=== PATIENT | female | born 1935 | race Two or more races ===

== ENCOUNTER 2016-10-01 08:12 | Inpatient (IN) | payer MEDICARE, MEDICAID ==
[~2016-10-01] VITALS: Ht 152.4 cm; Wt 52.2 kg
[2016-10-01] VITALS (8 sets, daily range): BP systolic 127–153; BP diastolic 40–108
[~2016-10-01 08:12] MED LIST: CYMBALTA30 MG ORAL; NORCO 5-325 TA1 EACH ORAL
[2016-10-01] MEDS ORDERED: Morphine Sulfate 2mg/ml Inj IVP ONE (08:30)
[2016-10-01 08:47] LABS: BASOPHILS % (AUTO) 0.4 % (0.0-2.0); EOSINOPHILS % (AUTO) 0.5 % (0.0-3.0); LYMPHOCYTES % (AUTO) 18.2 % (20.0-45.0); MEAN CORPUSCULAR HEMOGLOBIN 29.7 PG (27.0-31.0); MEAN CORPUSCULAR HGB CONC 34.5 G/DL (32.0-36.0); MEAN CORPUSCULAR VOLUME 86 FL (80-99); MEAN PLATELET VOLUME 5.8 FL (6.5-10.1); MONOCYTES % (AUTO) 4.5 % (1.0-10.0); NEUTROPHILS % (AUTO) 76.4 % (45.0-75.0); PLATELET COUNT 399 K/UL (150-450); RED BLOOD COUNT 3.96 M/UL (4.20-5.40); RED CELL DISTRIBUTION WIDTH 11.8 % (11.6-14.8); WHITE BLOOD COUNT 12.1 K/UL (4.8-10.8)
[2016-10-01 08:49] LABS: APPEARANCE,URINE CLEAR; KETONES,URINE NEGATIVE (NEGATIVE); LEUKOCYTE ESTERASE ,URINE NEGATIVE (NEGATIVE); NITRITE,URINE NEGATIVE (NEGATIVE); PH,URINE 7 (4.5-8.0); PROTEIN,URINE 3+ (NEGATIVE); UROBILINOGEN,URINE NORMAL MG/DL (0.0-1.0)
[2016-10-01 09:04] LABS: BACTERIA,URINE OCCASIONAL /HPF; SQUAMOUS EPITHELIAL CELL,UR FEW /LPF (NONE/OCC); WBC,URINE 0-2 /HPF (0 - 2)
[2016-10-01 09:46] LABS: ALANINE AMINOTRANSFERASE 18 U/L (3-33); ALBUMIN/GLOBULIN RATIO 1.2 (1.0-2.7); ASPARTATE AMINO TRANSFERASE 33 U/L (5-40); CALCIUM 7.7 mg/dL (8.6-10.2); CARBON DIOXIDE 20 mEQ/L (20-30); CHLORIDE 73 mEQ/L (98-107); CREATININE 0.5 mg/dL (0.5-0.9); HEMOLYSIS 61; LIPASE 22 U/L (< 60); POTASSIUM 4.4 mEQ/L (3.4-4.9); TOTAL PROTEIN 6.8 g/dL (6.6-8.7)
[2016-10-01 09:47] LABS: TROPONIN I < 0.30 ng/mL (<=0.30)
[2016-10-01 09:52] LABS: ANION GAP 16 (5-15)
[2016-10-01 09:54] LABS: SODIUM 109 mEQ/L (135-145)
[2016-10-01] MEDS ORDERED: NaCl 3% 500ml 500 ML IVPB ONE ×2 (10:15)
[2016-10-01] MEDS ORDERED: Norco 5mg/325mg tab ORAL PRN (10:15)
[2016-10-01] MEDS ORDERED: Mylanta II UD 30ml ORAL PRN (10:15)
[2016-10-01] MEDS ORDERED: Zolpidem 5mg tab ORAL PRN (10:15)
[2016-10-01] MEDS ORDERED: LORazepam Inj 2mg/ml 1ml IV PRN (10:15)
[2016-10-01] MEDS ORDERED: Miralax 17gm pkt ORAL PRN (10:15)
--- NOTE | 2016-10-01 11:19 | Emergency Room Report ---
History of Present Illness General Chief Complaint: Pain Source: EMS Present Illness HPI 80-year-old female presents ED complaining of abdominal pain with vomiting x2 weeks. Daughter at bedside states that earlier this month she had right knee surgery at [facility]. Patient was discharged home on pain medications. Daughter states she's been unable to tolerate by mouth medications. Patient also complaining of abdominal pain. Epigastric. 10 out of 10. Radiating to the back. Also noting flank pain. Next nausea and vomiting. Denies chest pain or shortness of breath. Denies fevers or chills. No other aggravating or leading factors. Denies any other associated symptoms Allergies: Coded Allergies: No Known Allergies (Unverified , 10/01/16) Patient History Past Medical History: psych hx Past Surgical History: other - knee surgery Pertinent Family History: none Social History: Denies: alcohol use, drug use, smoking Now: No Immunizations: UTD Reviewed Nursing Documentation: PMH: Agreed, PSxH: Agreed Nursing Documentation-PMH Past Medical History: No History, Except For Hx Hypertension: No - RT KNEE REPLACEMENT Hx Neurological Problems: Yes - DEPRESSION Review of Systems All Other Systems: negative except mentioned in HPI Physical Exam Vital Signs Date Time Temp Pulse Resp B/P Pulse Ox O2 Delivery O2 Flow Rate FiO2 10/01/16 07:53 97.5 76 20 110/72 100 Room Air Sp02 EP Interpretation: reviewed, normal General Appearance: mild distress, thin, other - shaking Head: normocephalic Eyes: bilateral eye PERRL, bilateral eye normal inspection ENT: normal ENT inspection Neck: normal inspection Respiratory: chest non-tender, lungs clear, normal breath sounds, speaking full sentences Cardiovascular #1: regular rate, rhythm, no edema Gastrointestinal: tenderness Rectal: deferred Genitourinary: no CVA tenderness Musculoskeletal: normal inspection Neurologic: other - lethargic, tremulous Psychiatric: normal inspection Skin: normal inspection Lymphatic: normal inspection Procedures Critical Care Time Critical Care Time i. I feel this is a highly complex case requiring extensive working including EKG/Rhythm strip, Xray/CT/US, Blood/urine lab work, repeat exams while in ED, and administration of strong opiates/narcotics for pain control, admission to hospital or close patient follow up. Total time: 30 min bedside evaluation and treatment excludes procedures (EKG). Reason for critical care: hyponatremia Possible complications: hypotension, hypertension, MS, shock, arrhythmias, metabolic acidosis, end organ damage, respiratory failure. Interventions: Labs, IV fluids, EKG, CT abdomen and pelvis. Pain medications. hypertonic saline Course: Patient here with abdominal pain and vomiting. Status post right knee surgery. Given pain medications and IV fluids. Labs show sodium 109. CT abdomen negative. Started on hypertonic saline Consultations: nursing staff, EMS, family Performed by: Dr Mcintyre Tolerated well condition = serious j. because of unstable vital signs this patient had a condition that could potentially threaten life or limb. I feel this is a critical patient who required my full attention while patient was considered critical. Total Critical Care Time excluding procedures was greater than 35 minutes Medical Decision Making Diagnostic Impression: Primary Impression: Hyponatremia Additional Impressions: Vomiting Qualified Codes: R11.2 - Nausea with vomiting, unspecified Abdominal pain Qualified Codes: R10.84 - Generalized abdominal pain ER Course Hospital Course 80-year-old female presents to ED with abdominal pain and vomiting. Status post right knee surgery Differential diagnoses include: gastritis, pancreatitis, kidney stone, pyelonephritis Clinical course Patient placed on stretcher. fitness trainer. After initial history and physical I ordered labs, IV fluids, UA, pain medication and CT scan Labs - no leukocytosis, Hb/Hct stable. Na 109. CT abdomen and pelvis -no acute process EKG - NSR, no acute changes Hypertonic saline started at 23 mL per hour Case discussed with Dr. Bourgeois and he agreed to accept the patient to his service for further care and support I feel this is a highly complex case requiring extensive working including EKG/ Rhythm strip, Xray/CT/US, Blood/urine lab work, repeat exams while in ED, and administration of strong opiates/narcotics for pain control, admission to hospital or close patient follow up. Diagnosis - hyponatremia, vomiting, abdominal pain Patient admitted to [facility] in serious condition Labs Test 10/01/16 08:20 10/01/16 08:35 10/01/16 09:02 White Blood Count 12.1 K/UL (4.8-10.8) Red Blood Count 3.96 M/UL (4.20-5.40) Hemoglobin 11.8 G/DL (12.0-16.0) Hematocrit 34.1 % (37.0-47.0) Mean Corpuscular Volume 86 FL (80-99) Mean Corpuscular Hemoglobin 29.7 PG (27.0-31.0) Mean Corpuscular Hemoglobin Concent 34.5 G/DL (32.0-36.0) Red Cell Distribution Width 11.8 % (11.6-14.8) Platelet Count 399 K/UL (150-450) Mean Platelet Volume 5.8 FL (6.5-10.1) Neutrophils (%) (Auto) 76.4 % (45.0-75.0) Lymphocytes (%) (Auto) 18.2 % (20.0-45.0) Monocytes (%) (Auto) 4.5 % (1.0-10.0) Eosinophils (%) (Auto) 0.5 % (0.0-3.0) Basophils (%) (Auto) 0.4 % (0.0-2.0) Urine Color Pale yellow Urine Appearance Clear Urine pH 7 (4.5-8.0) Urine Specific [place] 1.010 (1.005-1.035) Urine Protein 3+ (NEGATIVE) Urine Glucose (UA) Negative (NEGATIVE) Urine Ketones Negative (NEGATIVE) Urine Occult Blood 3+ (NEGATIVE) Urine Nitrite Negative (NEGATIVE) Urine Bilirubin Negative (NEGATIVE) Urine Urobilinogen Normal MG/DL (0.0-1.0) Urine Leukocyte Esterase Negative (NEGATIVE) Urine RBC 5-10 /HPF (0 - 2) Urine WBC 0-2 /HPF (0 - 2) Urine Squamous Epithelial Cells Few /LPF (NONE/OCC) Urine Bacteria Occasional /HPF (NONE) Sodium Level 109 mEQ/L (135-145) Potassium Level 4.4 mEQ/L (3.4-4.9) Chloride Level 73 mEQ/L (98-107) Carbon Dioxide Level 20 mEQ/L (20-30) Anion Gap 16 (5-15) Blood Urea Nitrogen 11 mg/dL (7-23) Creatinine 0.5 mg/dL (0.5-0.9) Estimat Glomerular Filtration Rate mL/min (>60) Glucose Level 121 mg/dL (74-106) Calcium Level 7.7 mg/dL (8.6-10.2) Total Bilirubin 0.7 mg/dL (0.0-1.2) Aspartate Amino Transf (AST/SGOT) 33 U/L (5-40) Alanine Aminotransferase (ALT/SGPT) 18 U/L (3-33) Alkaline Phosphatase 55 U/L (35-104) Troponin I < 0.30 ng/mL (<=0.30) Total Protein 6.8 g/dL (6.6-8.7) Albumin 3.8 g/dL (3.5-5.2) Globulin 3.0 g/dL Albumin/Globulin Ratio 1.2 (1.0-2.7) Lipase 22 U/L (< 60) EKG Diagnostic Results Rate: normal Rhythm: NSR ST Segments: no acute changes ASA given to the pt in ED: No Rhythm Strip Diag. Results EP Interpretation: yes Rhythm: NSR, no PVC's, no ectopy CT/MRI/US Diagnostic Results CT/MRI/US Diagnostic Results : Imaging Test Ordered: CT A/P Impression no acute process Last Vital Signs Date Time Temp Pulse Resp B/P Pulse Ox O2 Delivery O2 Flow Rate FiO2 10/01/16 10:33 80 14 134/40 97 Room Air 10/01/16 09:10 97.6 Status: improved Disposition: ADMITTED INPATIENT Condition: Serious Referrals: NOT CHOSEN IPA/,REFERRING (PCP) JOEY MCINTYRE M.D. October 01, 2016 11:19
--- NOTE | 2016-10-01 11:34 | Diagnostic Imaging Report ---
APPROVED REPORT CPT Code: 79909 Present Symptoms Lower Extremity Pain: Bilateral BILATERAL: Imaging reveals a patent deep venous system bilaterally. There is no evidence of thrombus within the femoral, popliteal or tibial segments. The greater saphenous veins are also within normal limits. Doppler indicates normal spontaneous flow within these segments.
--- NOTE | 2016-10-01 13:59 | Diagnostic Imaging Report ---
Indications: Abdominal and low back pain, nausea and vomiting for 2 weeks; 3 weeks status post right knee surgery; patient currently taking both hydrocodone and antidepressant medication Technique: Continuous helical CT imaging of the abdomen and pelvis was performed with automatic exposure control following administration of nonionic IV contrast only, on a Siemens sensation [address] scanner. Axial and coronal images were reconstructed at 5 mm slice thickness. No oral contrast was administered per requesting physician's order, presumably due to vomiting. CTDI volume(s): 15 mGy Total DLP: 691 mGy-cm Findings: Comparison: None Lack of oral contrast limits evaluation of gastrointestinal tract, nondilated throughout. Suggestion of small hiatal hernia. Stomach and segments of colon collapsed, further limiting evaluation. Appendix unremarkable. Multiple diverticula in descending and sigmoid colon. No obvious mural thickening, adjacent stranding, associated extraluminal gas or fluid collections. Gallbladder distended, and demonstrates multiple small nodular foci of increased attenuation along its wall. No obvious mural thickening, adjacent stranding or fluid. Liver parenchyma mildly, diffusely decreased attenuation. No obvious focal abnormality. Multiple circumscribed low attenuation foci in both renal cortices up to 17 mm diameter. Scattered arterial mural calcifications. No obvious flow-limiting stenosis or occlusion. Urinary bladder distended. No obvious mural thickening. 1 cm nodular calcification in anterior uterine fundal myometrium. Remainder visualized abdominopelvic anatomy demonstrates no other obvious acute abnormality. Mildly increased interstitial markings and dependent portions of both lung bases. Disc marginal osteophyte formation with annular bulge, vacuum phenomenon, facet hypertrophy lower lumbar spine. Mild spinal stenosis suggested at L4-5. No focal skeletal lesion identified. IMPRESSION: Mild gallbladder distention. Mural appearance is suggestive of hyperplastic cholecystosis/small polyps. No obvious acute inflammation. Correlate clinically. No other evidence of acute abdominopelvic disease, with limitation as described. Subtle but potentially significant abnormalities of the gastrointestinal tract may be missed. Repeat CT scan with full oral and IV contrast preparation recommended for more complete evaluation, as clinically indicated Small hiatal hernia Hepatic steatosis Bilateral renal cortical cysts Arteriosclerosis Colonic diverticulosis Urinary bladder distention Degenerated uterine fibroid Minimal pulmonary bibasal subsegmental atelectasis Degenerative spondylosis
[2016-10-01] MEDS: Morphine Sulfate 2mg/ml Inj IVP PRN ×2 (15:30→20:50)
--- NOTE | 2016-10-01 21:43 | History and Physical ---
History of Present Illness General Date patient seen: October 01, 2016 Reason for Hospitalization: Pain Present Illness HPI 80-year-old female with hx of HTN, recent knee surgery presented to ED complaining of abdominal pain with vomiting x2 weeks. Daughter states she's been unable to tolerate anything by mouth. Patient also complaining of abdominal pain. Epigastric. 10 out of 10. Radiating to the back. Her Na was critically low and she is admitted to [facility] for further treatment. Allergies: Coded Allergies: No Known Allergies (Unverified , 10/01/16) Medication History Scheduled Duloxetine Hcl* (Cymbalta*), Unknown Dose ORAL DAILY, (Reported) Scheduled PRN Hydrocodone Bit/Acetaminophen 5-325* ([place] 5-325*), 1 TAB ORAL Q4H PRN for For Pain, (Reported) Patient History Healthcare decision maker Resuscitation status Full Code Advanced Directive on File Past Medical/Surgical History Past Medical/Surgical History: (1) HTN (hypertension) (2) Depression (3) Hx of knee surgery Review of Systems All Other Systems: negative except mentioned in HPI Physical Exam General Appearance: WD/WN, no apparent distress Lines, tubes and drains: peripheral HEENT: normocephalic, atraumatic Neck: non-tender, normal alignment Respiratory/Chest: chest wall non-tender, lungs clear Cardiovascular/Chest: normal peripheral pulses, normal rate Abdomen: normal bowel sounds, non tender Genitourinary/Rectal: normal genital exam, normal rectal exam 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: 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 normal Last 24 Hour Vital Signs Date Time Temp Pulse Resp B/P Pulse Ox O2 Delivery O2 Flow Rate FiO2 10/01/16 20:00 92 10/01/16 16:00 99.4 86 18 142/65 98 Room Air 86 10/01/16 15:42 85 10/01/16 14:04 98.2 89 18 133/63 99 Room Air 10/01/16 12:42 93 21 151/84 99 Room Air 10/01/16 12:40 97.6 91 18 130/81 98 Room Air 10/01/16 11:39 91 18 130/81 98 Room Air 10/01/16 10:33 80 14 134/40 97 Room Air 10/01/16 09:12 79 19 145/86 100 Room Air 10/01/16 09:10 97.6 10/01/16 08:13 79 17 127/108 100 Room Air 10/01/16 07:53 97.5 76 20 110/72 100 Room Air Laboratory Tests Test 10/01/16 08:20 10/01/16 08:35 10/01/16 09:02 White Blood Count 12.1 K/UL (4.8-10.8) H Red Blood Count 3.96 M/UL (4.20-5.40) L Hemoglobin 11.8 G/DL (12.0-16.0) L Hematocrit 34.1 % (37.0-47.0) L Mean Corpuscular Volume 86 FL (80-99) Mean Corpuscular Hemoglobin 29.7 PG (27.0-31.0) Mean Corpuscular Hemoglobin Concent 34.5 G/DL (32.0-36.0) Red Cell Distribution Width 11.8 % (11.6-14.8) Platelet Count 399 K/UL (150-450) Mean Platelet Volume 5.8 FL (6.5-10.1) L Neutrophils (%) (Auto) 76.4 % (45.0-75.0) H Lymphocytes (%) (Auto) 18.2 % (20.0-45.0) L Monocytes (%) (Auto) 4.5 % (1.0-10.0) Eosinophils (%) (Auto) 0.5 % (0.0-3.0) Basophils (%) (Auto) 0.4 % (0.0-2.0) Urine Color Pale yellow Urine Appearance Clear Urine pH 7 (4.5-8.0) Urine Specific [place] 1.010 (1.005-1.035) Urine Protein 3+ (NEGATIVE) H Urine Glucose (UA) Negative (NEGATIVE) Urine Ketones Negative (NEGATIVE) Urine Occult Blood 3+ (NEGATIVE) H Urine Nitrite Negative (NEGATIVE) Urine Bilirubin Negative (NEGATIVE) Urine Urobilinogen Normal MG/DL (0.0-1.0) Urine Leukocyte Esterase Negative (NEGATIVE) Urine RBC 5-10 /HPF (0 - 2) H Urine WBC 0-2 /HPF (0 - 2) Urine Squamous Epithelial Cells Few /LPF (NONE/OCC) Urine Bacteria Occasional /HPF (NONE) Sodium Level 109 mEQ/L (135-145) *L Potassium Level 4.4 mEQ/L (3.4-4.9) Chloride Level 73 mEQ/L (98-107) L Carbon Dioxide Level 20 mEQ/L (20-30) Anion Gap 16 (5-15) H Blood Urea Nitrogen 11 mg/dL (7-23) Creatinine 0.5 mg/dL (0.5-0.9) Estimat Glomerular Filtration Rate mL/min (>60) Glucose Level 121 mg/dL (74-106) H Calcium Level 7.7 mg/dL (8.6-10.2) L Total Bilirubin 0.7 mg/dL (0.0-1.2) Aspartate Amino Transf (AST/SGOT) 33 U/L (5-40) Alanine Aminotransferase (ALT/SGPT) 18 U/L (3-33) Alkaline Phosphatase 55 U/L (35-104) Troponin I < 0.30 ng/mL (<=0.30) Total Protein 6.8 g/dL (6.6-8.7) Albumin 3.8 g/dL (3.5-5.2) Globulin 3.0 g/dL Albumin/Globulin Ratio 1.2 (1.0-2.7) Lipase 22 U/L (< 60) Height (Feet): 5 Height (Inches): 0.00 Weight (Pounds): 119 Medications Current Medications Medications (Trade) Dose Ordered Sig/Jack Route PRN Reason Start Time Stop Time Status Last Admin Dose Admin Acetaminophen (Tylenol) 650 mg Q4H PRN ORAL fever 10/01/16 10:15 10/31/16 10:14 Acetaminophen/ Hydrocodone Bitart ([place] 5/325) 1 tab Q4H PRN ORAL Moderate Pain (Pain Scale 4-6) 10/01/16 10:15 10/08/16 10:14 Al Hydroxide/Mg Hydroxide (Mylanta II) 30 ml Q6H PRN ORAL dyspepsia 10/01/16 10:15 10/31/16 10:14 Dextrose STAT PRN IV Hypoglycemia 10/01/16 10:15 10/31/16 10:14 Duloxetine HCl (Cymbalta) 10 mg DAILY ORAL 10/02/16 09:00 11/01/16 08:59 Lorazepam (Ativan 2mg/ml 1ml) 0.5 mg Q4H PRN IV For Anxiety 10/01/16 10:15 10/08/16 10:14 Morphine Sulfate (Morphine Sulfate) 1 mg Q4H PRN IVP Severe Pain (Pain Scale 7-10) 10/01/16 10:15 10/08/16 10:14 10/01/16 20:50 Ondansetron HCl (Zofran) 4 mg Q6H PRN IVP Nausea & Vomiting 10/01/16 10:15 10/31/16 10:14 Polyethylene Glycol (Miralax) 17 gm HSPRN PRN ORAL Constipation 10/01/16 10:15 10/31/16 10:14 Sodium Chloride (Hypertonic Saline) 500 ml @ 23 mls/hr ONCE ONCE IVPB 10/01/16 10:15 10/02/16 07:59 10/01/16 11:19 Zolpidem Tartrate (Ambien) 5 mg HSPRN PRN ORAL Insomnia 10/01/16 10:15 10/31/16 10:14 Assessment/Plan Problem List: (1) Hyponatremia ICD Codes: E87.1 - Hypo-osmolality and hyponatremia SNOMED: 05714661 (2) Abdominal pain ICD Codes: R10.9 - Unspecified abdominal pain SNOMED: 25065355 Qualifiers: Qualified Codes: R10.84 - Generalized abdominal pain (3) Vomiting ICD Codes: R11.10 - Vomiting, unspecified SNOMED: 995083904 Qualifiers: Qualified Codes: R11.2 - Nausea with vomiting, unspecified (4) Hx of knee surgery ICD Codes: Z98.890 - Other specified postprocedural states SNOMED: 830210423, 238114639 (5) Depression ICD Codes: F32.9 - Major depressive disorder, single episode, unspecified SNOMED: 58887289 (6) HTN (hypertension) ICD Codes: I10 - Essential (primary) hypertension SNOMED: 42645495 Assessment/Plan 3% sailing check tsh, monitor bp renal evaluation GI evaluation dvt prophylaxis ALINE HITCHCOCK October 01, 2016 21:43
[2016-10-02] VITALS (7 sets, daily range): BP systolic 128–158; BP diastolic 57–96
[2016-10-02 05:14] LABS: BASOPHILS % (AUTO) 0.8 % (0.0-2.0); EOSINOPHILS % (AUTO) 1.5 % (0.0-3.0); LYMPHOCYTES % (AUTO) 24.8 % (20.0-45.0); MEAN CORPUSCULAR HEMOGLOBIN 30.1 PG (27.0-31.0); MEAN CORPUSCULAR HGB CONC 34.4 G/DL (32.0-36.0); MEAN CORPUSCULAR VOLUME 88 FL (80-99); MEAN PLATELET VOLUME 6.1 FL (6.5-10.1); NEUTROPHILS % (AUTO) 62.9 % (45.0-75.0); PLATELET COUNT 361 K/UL (150-450); RED BLOOD COUNT 3.33 M/UL (4.20-5.40); RED CELL DISTRIBUTION WIDTH 12.2 % (11.6-14.8); WHITE BLOOD COUNT 7.6 K/UL (4.8-10.8)
[2016-10-02 05:48] LABS: ALANINE AMINOTRANSFERASE 18 U/L (3-33); ALBUMIN/GLOBULIN RATIO 1.3 (1.0-2.7); ANION GAP 16 (5-15); ASPARTATE AMINO TRANSFERASE 23 U/L (5-40); CALCIUM 8.1 mg/dL (8.6-10.2); CARBON DIOXIDE 21 mEQ/L (20-30); CHLORIDE 87 mEQ/L (98-107); CHOLESTEROL 183 mg/dL (< 200); CHOLESTEROL/HDL RATIO 1.9 (3.3-4.4); CREATININE 0.8 mg/dL (0.5-0.9); HEMOLYSIS 4; LDL CHOLESTEROL (CALC.) 72 mg/dL (60-99); POTASSIUM 3.8 mEQ/L (3.4-4.9); SODIUM 124 mEQ/L (135-145); TOTAL PROTEIN 6.5 g/dL (6.6-8.7)
[2016-10-02] MEDS ORDERED: DULoxetine 30mg cap ORAL SCH (09:00)
--- NOTE | 2016-10-02 11:01 | Pulmonology Progress Note ---
Assessment/Plan Problems: (1) Hyponatremia (2) Abdominal pain (3) Vomiting (4) Hx of knee surgery (5) Depression (6) HTN (hypertension) Assessment/Plan Na better TSH slightly high start synthyroid GI evaluation anemia w/u. dvt propylaxis Subjective ROS Limited/Unobtainable: No Interval Events: comfortable, ate her breakfast Allergies: Coded Allergies: No Known Allergies (Unverified , 10/01/16) Objective Last 24 Hour Vital Signs Date Time Temp Pulse Resp B/P Pulse Ox O2 Delivery O2 Flow Rate FiO2 10/02/16 08:00 98.2 92 20 140/64 99 Room Air 10/02/16 04:00 98.0 86 20 136/59 98 Room Air 10/02/16 04:00 81 10/02/16 01:01 98.0 82 18 128/57 98 Room Air 10/02/16 00:00 81 10/02/16 00:00 98.0 82 18 128/57 98 Room Air 10/01/16 20:00 98.3 92 20 153/76 97 Room Air 10/01/16 20:00 92 10/01/16 16:00 99.4 86 18 142/65 98 Room Air 86 10/01/16 15:42 85 10/01/16 14:04 98.2 89 18 133/63 99 Room Air 10/01/16 12:42 93 21 151/84 99 Room Air 10/01/16 12:40 97.6 91 18 130/81 98 Room Air 10/01/16 11:39 91 18 130/81 98 Room Air Intake and Output 10/01/16 10/02/16 19:00 07:00 Intake Total 888 ml 276 ml Output Total 200 ml 800 ml Balance 688 ml -524 ml Intake Oral 250 ml IV Total 638 ml 276 ml Output Urine Total 200 ml 800 ml General Appearance: WD/WN HEENT: normocephalic Respiratory/Chest: chest wall non-tender, lungs clear Breasts: no masses Cardiovascular: normal peripheral pulses, normal rate Abdomen: normal bowel sounds, soft, non tender Genitourinary: normal external genitalia Extremities: no cyanosis Skin: no rash 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, no motor/sensory deficits Lymphatic: no neck adenopathy Laboratory Tests 10/02/16 03:30: Uric Acid 3.1 10/02/16 03:50: White Blood Count 7.6, Red Blood Count 3.33L, Hemoglobin 10.0L, Hematocrit 29.1L , Mean Corpuscular Volume 88, Mean Corpuscular Hemoglobin 30.1, Mean Corpuscular Hemoglobin Concent 34.4, Red Cell Distribution Width 12.2, Platelet Count 361, Mean Platelet Volume 6.1L, Neutrophils (%) (Auto) 62.9, Lymphocytes ( %) (Auto) 24.8, Monocytes (%) (Auto) 10.0, Eosinophils (%) (Auto) 1.5, Basophils (%) (Auto) 0.8, Sodium Level 124#L, Potassium Level 3.8, Chloride Level 87L, Carbon Dioxide Level 21, Anion Gap 16H, Blood Urea Nitrogen 13, Creatinine 0.8#, Estimat Glomerular Filtration Rate , Glucose Level 104, Calcium Level 8.1L, Total Bilirubin 0.7, Aspartate Amino Transf (AST/SGOT) 23, Alanine Aminotransferase (ALT/SGPT) 18, Alkaline Phosphatase 55, Total Protein 6.5L, Albumin 3.7, Globulin 2.8, Albumin/Globulin Ratio 1.3, Triglycerides Level 63, Cholesterol Level 183, LDL Cholesterol 72, HDL Cholesterol 98H, Cholesterol/HDL Ratio 1.9L, Thyroid Stimulating Hormone (TSH) 5.500H Current Medications Medications (Trade) Dose Ordered Sig/Jack Route PRN Reason Start Time Stop Time Status Last Admin Dose Admin Acetaminophen (Tylenol) 650 mg Q4H PRN ORAL fever 10/01/16 10:15 10/31/16 10:14 Acetaminophen/ Hydrocodone Bitart ([place] 5/325) 1 tab Q4H PRN ORAL Moderate Pain (Pain Scale 4-6) 10/01/16 10:15 10/08/16 10:14 Al Hydroxide/Mg Hydroxide (Mylanta II) 30 ml Q6H PRN ORAL dyspepsia 10/01/16 10:15 10/31/16 10:14 10/02/16 10:35 Dextrose (Dextrose 50%) STAT PRN IV Hypoglycemia 10/01/16 10:15 10/31/16 10:14 Duloxetine HCl (Cymbalta) 20 mg DAILY ORAL 10/02/16 11:30 11/01/16 11:29 Lorazepam (Ativan 2mg/ml 1ml) 0.5 mg Q4H PRN IV For Anxiety 10/01/16 10:15 10/08/16 10:14 Morphine Sulfate (Morphine Sulfate) 1 mg Q4H PRN IVP Severe Pain (Pain Scale 7-10) 10/01/16 10:15 10/08/16 10:14 10/01/16 20:50 Ondansetron HCl (Zofran) 4 mg Q6H PRN IVP Nausea & Vomiting 10/01/16 10:15 10/31/16 10:14 Polyethylene Glycol (Miralax) 17 gm HSPRN PRN ORAL Constipation 10/01/16 10:15 10/31/16 10:14 Zolpidem Tartrate (Ambien) 5 mg HSPRN PRN ORAL Insomnia 10/01/16 10:15 10/31/16 10:14 ALINE HITCHCOCK October 02, 2016 11:01
--- NOTE | 2016-10-02 11:28 | GI Initial Consult Note ---
History of Present Illness General Date patient seen: October 02, 2016 Time patient seen: 11:27 Reason for Hospitalization: Pain Referring physician: ALINE HITCHCOCK Reason for Consultation: ABDOMINAL PAIN / VOMITING Present Illness HPI 80-year-old female presents ED complaining of abdominal pain with vomiting x2 weeks. Daughter at bedside states that earlier this month she had right knee surgery at [facility]. Patient was discharged home on pain medications. Daughter states she's been unable to tolerate by mouth medications. Patient also complaining of abdominal pain. Epigastric. 10 out of 10. Radiating to the back. Also noting flank pain. Next nausea and vomiting. Denies chest pain or shortness of breath. Denies fevers or chills. No other aggravating or leading factors. Denies any other associated symptoms GI CONSULT: HPI noted. GI consulted for vomiting and abdominal pain. Pt seen on floor, awake A&O NAD with no active s/sx of N/V. Patient currently c/o of epigastric pain with radiation to the back. Unknown history of endoscopic procedures. Pt presents today with anemia and hyponatremia. Home Meds Reported Medications Duloxetine Hcl* (CYMBALTA*) 30 Mg Capsule., ORAL DAILY, CAP 10/01/16 Hydrocodone Bit/Acetaminophen 5-325* (NORCO 5-325*) 1 Each Tablet, 1 TAB ORAL Q4H Y for For Pain, TAB 0 Refills 10/01/16 Med list reviewed/reconciled: Yes Allergies: Coded Allergies: No Known Allergies (Unverified , 10/01/16) Patient History History Provided By: Patient, Medical Record PMH Narrative Past Medical History: psych hx Past Surgical History: other - knee surgery Pertinent Family History: none Social History: Denies: alcohol use, drug use, smoking Now: No Immunizations: UTD Reviewed Nursing Documentation: PMH: Agreed, PSxH: Agreed Nursing Documentation-PMH Past Medical History: No History, Except For Hx Hypertension: No - RT KNEE REPLACEMENT Hx Neurological Problems: Yes - DEPRESSION Review of Systems All Other Systems: negative except mentioned in HPI Physical Exam Vital Signs Date Time Temp Pulse Resp B/P Pulse Ox O2 Delivery O2 Flow Rate FiO2 10/01/16 07:53 97.5 76 20 110/72 100 Room Air Sp02 EP Interpretation: reviewed Labs Laboratory Tests Test 10/02/16 03:30 10/02/16 03:50 Uric Acid 3.1 mg/dL (3.0-7.5) White Blood Count 7.6 K/UL (4.8-10.8) Red Blood Count 3.33 M/UL (4.20-5.40) L Hemoglobin 10.0 G/DL (12.0-16.0) L Hematocrit 29.1 % (37.0-47.0) L Mean Corpuscular Volume 88 FL (80-99) Mean Corpuscular Hemoglobin 30.1 PG (27.0-31.0) Mean Corpuscular Hemoglobin Concent 34.4 G/DL (32.0-36.0) Red Cell Distribution Width 12.2 % (11.6-14.8) Platelet Count 361 K/UL (150-450) Mean Platelet Volume 6.1 FL (6.5-10.1) L Neutrophils (%) (Auto) 62.9 % (45.0-75.0) Lymphocytes (%) (Auto) 24.8 % (20.0-45.0) Monocytes (%) (Auto) 10.0 % (1.0-10.0) Eosinophils (%) (Auto) 1.5 % (0.0-3.0) Basophils (%) (Auto) 0.8 % (0.0-2.0) Sodium Level 124 mEQ/L (135-145) #L Potassium Level 3.8 mEQ/L (3.4-4.9) Chloride Level 87 mEQ/L (98-107) L Carbon Dioxide Level 21 mEQ/L (20-30) Anion Gap 16 (5-15) H Blood Urea Nitrogen 13 mg/dL (7-23) Creatinine 0.8 mg/dL (0.5-0.9) # Estimat Glomerular Filtration Rate mL/min (>60) Glucose Level 104 mg/dL (74-106) Calcium Level 8.1 mg/dL (8.6-10.2) L Total Bilirubin 0.7 mg/dL (0.0-1.2) Aspartate Amino Transf (AST/SGOT) 23 U/L (5-40) Alanine Aminotransferase (ALT/SGPT) 18 U/L (3-33) Alkaline Phosphatase 55 U/L (35-104) Total Protein 6.5 g/dL (6.6-8.7) L Albumin 3.7 g/dL (3.5-5.2) Globulin 2.8 g/dL Albumin/Globulin Ratio 1.3 (1.0-2.7) Triglycerides Level 63 mg/dL (< 150) Cholesterol Level 183 mg/dL (< 200) LDL Cholesterol 72 mg/dL (60-99) HDL Cholesterol 98 mg/dL (> 60) H Cholesterol/HDL Ratio 1.9 (3.3-4.4) L Thyroid Stimulating Hormone (TSH) 5.500 uIU/mL (0.300-4.500) General Appearance: well appearing, no apparent distress EENT: normal ENT inspection Neck: full range of motion Respiratory: normal breath sounds, no respiratory distress Cardiovascular: normal rate Gastrointestinal: normal inspection, soft, tenderness - epigastric, ascites Genitourinary: no CVA tenderness Musculoskeletal: back normal Neurologic: alert Psychiatric: normal inspection, judgement/insight normal, memory normal Skin: normal inspection, normal color, no rash Lymphatic: normal inspection, no adenopathy Current Medications Current Medications Medications (Trade) Dose Ordered Sig/Jack Route PRN Reason Start Time Stop Time Status Last Admin Dose Admin Acetaminophen (Tylenol) 650 mg Q4H PRN ORAL fever 10/01/16 10:15 10/31/16 10:14 Acetaminophen/ Hydrocodone Bitart ([place] 5/325) 1 tab Q4H PRN ORAL Moderate Pain (Pain Scale 4-6) 10/01/16 10:15 10/08/16 10:14 Al Hydroxide/Mg Hydroxide (Mylanta II) 30 ml Q6H PRN ORAL dyspepsia 10/01/16 10:15 10/31/16 10:14 10/02/16 10:35 Dextrose (Dextrose 50%) STAT PRN IV Hypoglycemia 10/01/16 10:15 10/31/16 10:14 Duloxetine HCl 20 mg 20 mg DAILY ORAL 10/02/16 11:30 11/01/16 11:29 10/02/16 11:18 Levothyroxine Sodium (Synthroid) 25 mcg DAILY@0630 ORAL 10/03/16 06:30 11/02/16 06:29 Lorazepam (Ativan 2mg/ml 1ml) 0.5 mg Q4H PRN IV For Anxiety 10/01/16 10:15 10/08/16 10:14 Morphine Sulfate (Morphine Sulfate) 1 mg Q4H PRN IVP Severe Pain (Pain Scale 7-10) 10/01/16 10:15 10/08/16 10:14 10/01/16 20:50 Ondansetron HCl (Zofran) 4 mg Q6H PRN IVP Nausea & Vomiting 10/01/16 10:15 10/31/16 10:14 Polyethylene Glycol (Miralax) 17 gm HSPRN PRN ORAL Constipation 10/01/16 10:15 10/31/16 10:14 Potassium Chloride/Dextrose/ Sodium Chloride (KCl/D5ns) 1,010 ml @ 75 mls/hr [id number] IV 10/02/16 12:00 11/01/16 11:59 Zolpidem Tartrate (Ambien) 5 mg HSPRN PRN ORAL Insomnia 10/01/16 10:15 10/31/16 10:14 GI: Plan Problems: (1) GERD (gastroesophageal reflux disease) (2) Abdominal pain (3) Hyponatremia (4) Vomiting (5) Hypothyroid Plan APCT reviewed >> unremarkable symptomatic treatment at this time >> recommend EGD/colonoscopy to evaluate for her anemia zofran prn anemia work up OB stool r/o GI bleed monitor H&H, transfuse prn ppi regular diet, tolerating electrolyte replacement fu labs Discussed with Dr. Ceja. Thank you for referring this patient, we will follow. Kera Hammond N.P. October 02, 2016 11:28
[2016-10-02] MEDS ORDERED: Pantoprazole Inj IVP SCH ×2 (12:00→18:00)
--- NOTE | 2016-10-02 12:19 | Consultation ---
Consult Note Consult Note 80-year-old female presents ED complaining of abdominal pain with vomiting x2 weeks. Daughter at bedside states that earlier this month she had right knee surgery at [facility]. Patient was discharged home on pain medications. Daughter states she's been unable to tolerate by mouth medications. Patient also complaining of abdominal pain. Epigastric. 10 out of 10. Radiating to the back. Also noting flank pain. Next nausea and vomiting. Denies chest pain or shortness of breath. Denies fevers or chills. No other aggravating or leading factors. Denies any other associated symptoms Past Medical History: psych hx Past Surgical History: other - knee surgery Past Medical History: No History, Except For Hx Hypertension: No - RT KNEE REPLACEMENT Hx Neurological Problems: Yes - DEPRESSION . Assessment/Plan status; (1) Hyponatremia- likely depletional due to vomiting (2) Abdominal pain (3) Vomiting (4) Hx of knee surgery (5) Depression (6) HTN (hypertension) Plan; Saline infusion- Protonix IV Monitor lytes- check S os and U os and Susannah.. per orders RAKESH KUMAR October 02, 2016 12:19
--- NOTE | 2016-10-02 12:21 | Consultation ---
Consult Note Consult Note ID Dic# [id number] RORY TURNER M.D. October 02, 2016 12:21
[2016-10-02] MEDS ORDERED: NaCl 3% 500ml 250 ML IV ONE ×2 (14:00)
[2016-10-02] MEDS ORDERED: LORazepam Inj 2mg/ml 1ml IV PRN (15:00)
--- NOTE | 2016-10-02 19:02 | Cardiology Report ---
APPROVED REPORT EKG Measurement Heart [id number] Normal sinus rhythm Normal ECG
[2016-10-02] MEDS: Norco 5mg/325mg tab ORAL PRN (20:14)
[2016-10-02] MEDS: Pantoprazole Inj IVP SCH (20:15)
[2016-10-02] MEDS ORDERED: Miralax 17gm pkt ORAL PRN (21:00)
[2016-10-02] MEDS ORDERED: Zolpidem 5mg tab ORAL PRN (21:00)
--- NOTE | 2016-10-02 21:32 | Consultation ---
DATE OF CONSULTATION: INFECTIOUS DISEASE CONSULTATION CONSULTING PHYSICIAN: Amanuel Gordillo M.D. REQUESTING PHYSICIAN: Akil Bourgeois M.D. REASON FOR CONSULTATION: Evaluation of the patient for leukocytosis, gastroenteritis, and need for antibiotic management. HISTORY OF PRESENT ILLNESS: The patient is an 80-year-old female with multiple medical problems, as listed below, who is admitted to this medical center for abdominal pain and vomiting. At the time of my exam, the patient's symptoms appeared to have improved. The patient does not have any nausea or vomiting further. The patient denies having diarrhea. The patient was found to have leukocytosis of 12,000. Her vital signs during her stay so far has been unremarkable and she has been afebrile. PAST MEDICAL HISTORY: 1. Hypertension. 2. History of right knee replacement. 3. History of back pain. 4. Depression. MEDICATIONS: Currently, off of antibiotics. ALLERGIES: No known drug allergies. SOCIAL HISTORY: The patient lives at home. FAMILY HISTORY: Not contributing. PHYSICAL EXAMINATION: VITAL SIGNS: Temperature 98 degrees, pulse 86, respiratory rate 18, and blood pressure 140/64. HEENT: Mild pale conjunctivae. No icterus. NECK: No lymphadenopathy. CHEST: Coarse breathing sounds. HEART: S1 and S2. ABDOMEN: Soft and nontender. EXTREMITIES: No cyanosis. NEUROLOGIC: Awake. LABORATORY DATA: White blood cells at the time of admission was 12 and now 7.6, hemoglobin 10, and platelets 261,000. UA remarkable. BUN 13 and creatinine 0.8. Liver function tests unremarkable. CT of the abdomen shows mild gallbladder distension and small hiatal hernia. Venous duplex is unremarkable for DVT. ASSESSMENT: The patient is an 80-year-old female, who came to the hospital with nausea, vomiting, and abdominal pain. At the time of my exam, the patient does not have abdominal pain. CT scan showed mildly distended gallbladder and some thickening of the gallbladder, probably hypoplastic, however, there is a concern for possible cholecystitis although the patient's liver function test is unremarkable. PLAN: 1. We will monitor the patient off of antibiotics. 2. Monitor CBC. 3. Monitor BMP. 4. We will order ultrasound of the abdomen. 5. We will follow GI recommendations for possible further workups. 6. Based on the patient's clinical course and labs, we will do further recommendations. Thank you, Dr. Bourgeois, for consultation. I will follow the patient with you during this admission. Amanuel Gordillo M.D. DR: SHUBHAM JOB#: [id number] CC:
[2016-10-03] VITALS (7 sets, daily range): BP systolic 150–166; BP diastolic 61–76
[2016-10-03] MEDS ORDERED: Levothyroxine 25mcg tab ORAL SCH ×2 (06:30)
[2016-10-03 07:15] LABS: BASOPHILS % (AUTO) 0.9 % (0.0-2.0); LYMPHOCYTES % (AUTO) 21.1 % (20.0-45.0); MEAN CORPUSCULAR HEMOGLOBIN 30.6 PG (27.0-31.0); MEAN CORPUSCULAR HGB CONC 34.8 G/DL (32.0-36.0); MEAN CORPUSCULAR VOLUME 88 FL (80-99); MEAN PLATELET VOLUME 6.2 FL (6.5-10.1); MONOCYTES % (AUTO) 6.5 % (1.0-10.0); NEUTROPHILS % (AUTO) 69.4 % (45.0-75.0); PLATELET COUNT 352 K/UL (150-450); RED BLOOD COUNT 3.29 M/UL (4.20-5.40); RED CELL DISTRIBUTION WIDTH 12.5 % (11.6-14.8)
[2016-10-03 07:41] LABS: FERRITIN 387 ng/mL (13-150)
[2016-10-03 08:11] LABS: HEMOLYSIS 4; IRON 85 ug/dL (37-145); TOTAL IRON BINDING CAPACITY 328 ug/dL (250-400)
--- NOTE | 2016-10-03 08:37 | General Progress Note ---
Assessment/Plan Problem List: (1) Hypothyroid ICD Codes: E03.9 - Hypothyroidism, unspecified SNOMED: 87950056 (2) GERD (gastroesophageal reflux disease) ICD Codes: K21.9 - Gastro-esophageal reflux disease without esophagitis SNOMED: 736702396 (3) HTN (hypertension) ICD Codes: I10 - Essential (primary) hypertension SNOMED: 72534281 (4) Abdominal pain ICD Codes: R10.9 - Unspecified abdominal pain SNOMED: 88073405 Qualifiers: Qualified Codes: R10.84 - Generalized abdominal pain Assessment/Plan mild hypothyroidism I concur with Levothyroxine 25 mcg daily follow TSH in 3-4 months Subjective Allergies: Coded Allergies: No Known Allergies (Unverified , 10/01/16) Subjective events noted Objective Last 24 Hour Vital Signs Date Time Temp Pulse Resp B/P Pulse Ox O2 Delivery O2 Flow Rate FiO2 10/03/16 08:22 97.7 82 20 156/68 98 Room Air 10/03/16 04:00 97.5 88 20 150/73 97 Room Air 10/03/16 00:00 97.7 88 20 161/66 97 Room Air 10/02/16 21:13 97.7 10/02/16 20:00 97.7 98 20 144/96 97 Room Air 10/02/16 16:00 98.1 85 20 158/70 98 Room Air 10/02/16 12:00 97.0 85 18 139/65 Room Air Intake and Output 10/02/16 10/03/16 19:00 07:00 Intake Total 912 ml 115 ml Output Total 900 ml Balance 12 ml 115 ml Intake Oral 820 ml IV Total 92 ml 115 ml Output Urine Total 900 ml # Voids 1 2 # Bowel Movements 5 Laboratory Tests 10/02/16 11:30: Free Thyroxine 1.23, Free Triiodothyronine [Pending] 10/02/16 12:40: Urine Osmolality [Pending], Urine Random Sodium 41 10/03/16 06:05: White Blood Count 9.0, Red Blood Count 3.29L, Hemoglobin 10.1L, Hematocrit 29.0L , Mean Corpuscular Volume 88, Mean Corpuscular Hemoglobin 30.6, Mean Corpuscular Hemoglobin Concent 34.8, Red Cell Distribution Width 12.5, Platelet Count 352, Mean Platelet Volume 6.2L, Neutrophils (%) (Auto) 69.4, Lymphocytes ( %) (Auto) 21.1, Monocytes (%) (Auto) 6.5, Eosinophils (%) (Auto) 2.0, Basophils (%) (Auto) 0.9, Reticulocyte Count [Pending], Sodium Level [Pending], Potassium Level [Pending], Chloride Level [Pending], Carbon Dioxide Level [Pending], Blood Urea Nitrogen [Pending], Creatinine [Pending], Estimat Glomerular Filtration Rate [Pending], Glucose Level [Pending], Plasma/Serum Osmolality [ Pending], Uric Acid 2.6L, Calcium Level [Pending], Phosphorus Level [Pending], Magnesium Level [Pending], Iron Level 85, Total Iron Binding Capacity 328, Percent Iron Saturation 26, Unsaturated Iron Binding 243, Ferritin 387H, Total Bilirubin [Pending], Aspartate Amino Transf (AST/SGOT) [Pending], Alanine Aminotransferase (ALT/SGPT) [Pending], Alkaline Phosphatase [Pending], Pro-B- Type Natriuretic Peptide 185, Total Protein [Pending], Albumin [Pending], Globulin [Pending], Carcinoembryonic Antigen 2.4, Vitamin B12 Level > 2000H, Folate [Pending], Thyroid Stimulating Hormone (TSH) 7.100H 10/03/16 06:15: Prothrombin Time 10.0, Prothromb Time International Ratio 1.0, Activated Partial Thromboplast Time 27 Height (Feet): 5 Height (Inches): 0.00 Weight (Pounds): 119 General Appearance: no apparent distress Neck: normal alignment Cardiovascular: regular rhythm Respiratory/Chest: lungs clear Abdomen: normal bowel sounds Edema: no edema noted Arm (L), no edema noted Arm (R), no edema noted Leg (L), no edema noted Leg (R), no edema noted Pedal (L), no edema noted Pedal (R), no edema noted Generalized Objective Current Medications Medications (Trade) Dose Ordered Sig/Jack Route PRN Reason Start Time Stop Time Status Last Admin Dose Admin Acetaminophen (Tylenol) 650 mg Q4H PRN ORAL T>100.5 10/02/16 15:00 11/01/16 14:59 Acetaminophen/ Hydrocodone Bitart ([place] 5/325) 1 tab Q4H PRN ORAL Moderate Pain (Pain Scale 4-6) 10/02/16 15:00 10/09/16 14:59 10/02/16 20:14 Dextrose (Dextrose 50%) STAT PRN IV Hypoglycemia 10/02/16 15:00 11/01/16 14:59 Duloxetine HCl (Cymbalta) 20 mg DAILY ORAL 10/03/16 09:00 11/02/16 08:59 Levothyroxine Sodium (Synthroid) 25 mcg DAILY@0630 ORAL 10/03/16 06:30 11/02/16 06:29 10/03/16 05:59 Lorazepam (Ativan 2mg/ml 1ml) 0.5 mg Q4H PRN IV For Anxiety 10/02/16 15:00 10/09/16 14:59 Morphine Sulfate (Morphine Sulfate) 1 mg Q4H PRN IVP Severe Pain (Pain Scale 7-10) 10/02/16 15:00 10/09/16 14:59 Ondansetron HCl (Zofran) 4 mg Q6H PRN IVP Nausea & Vomiting 10/02/16 15:00 11/01/16 14:59 Pantoprazole (Protonix) 40 mg Q12HR IVP 10/02/16 21:00 11/01/16 20:59 10/02/16 20:15 Polyethylene Glycol (Miralax) 17 gm HSPRN PRN ORAL Constipation 10/02/16 21:00 11/01/16 20:59 Zolpidem Tartrate (Ambien) 5 mg HSPRN PRN ORAL Insomnia 10/02/16 21:00 11/01/16 20:59 LENORE FRIED October 03, 2016 08:37
[2016-10-03 08:41] LABS: ALANINE AMINOTRANSFERASE 20 U/L (3-33); ALBUMIN/GLOBULIN RATIO 1.4 (1.0-2.7); ANION GAP 19 (5-15); ASPARTATE AMINO TRANSFERASE 23 U/L (5-40); CALCIUM 8.1 mg/dL (8.6-10.2); CARBON DIOXIDE 19 mEQ/L (20-30); CHLORIDE 86 mEQ/L (98-107); CREATININE 0.6 mg/dL (0.5-0.9); HEMOLYSIS 1; PHOSPHORUS 2.1 mg/dL (2.5-4.8); POTASSIUM 3.7 mEQ/L (3.4-4.9); SODIUM 124 mEQ/L (135-145); TOTAL PROTEIN 6.4 g/dL (6.6-8.7)
[2016-10-03] MEDS: Pantoprazole Inj IVP SCH ×2 (09:18→20:36)
[2016-10-03] MEDS ORDERED: KCl 10% 40mEq/30ml liquid ORAL ONE (10:00)
--- NOTE | 2016-10-03 10:03 | General Progress Note ---
Assessment/Plan Status: unchanged Status Narrative Na 124 Assessment/Plan (1) Hyponatremia- likely depletional due to vomiting- Also has evidence of SIADH ( Low Uric and high Susannah) (2) Abdominal pain (3) Vomiting (4) Hx of knee surgery (5) Depression (6) HTN (hypertension) (7) HypoThyroidism Plan; Saline infusion- PO Fluid restriction- Up dose Synthroid- Protonix IV Monitor lytes- check S os and U os and Susannah.. per orders Subjective ROS Limited/Unobtainable: No Constitutional: Reports: malaise Allergies: Coded Allergies: No Known Allergies (Unverified , 10/01/16) Objective Last 24 Hour Vital Signs Date Time Temp Pulse Resp B/P Pulse Ox O2 Delivery O2 Flow Rate FiO2 10/03/16 08:22 97.7 82 20 156/68 98 Room Air 10/03/16 04:00 97.5 88 20 150/73 97 Room Air 10/03/16 00:00 97.7 88 20 161/66 97 Room Air 10/02/16 21:13 97.7 10/02/16 20:00 97.7 98 20 144/96 97 Room Air 10/02/16 16:00 98.1 85 20 158/70 98 Room Air 10/02/16 12:00 97.0 85 18 139/65 Room Air Intake and Output 10/02/16 10/03/16 19:00 07:00 Intake Total 912 ml 115 ml Output Total 900 ml Balance 12 ml 115 ml Intake Oral 820 ml IV Total 92 ml 115 ml Output Urine Total 900 ml # Voids 1 2 # Bowel Movements 5 Laboratory Tests 10/02/16 11:30: Free Thyroxine 1.23, Free Triiodothyronine [Pending] 10/02/16 12:40: Urine Osmolality [Pending], Urine Random Sodium 41 10/03/16 06:05: White Blood Count 9.0, Red Blood Count 3.29L, Hemoglobin 10.1L, Hematocrit 29.0L , Mean Corpuscular Volume 88, Mean Corpuscular Hemoglobin 30.6, Mean Corpuscular Hemoglobin Concent 34.8, Red Cell Distribution Width 12.5, Platelet Count 352, Mean Platelet Volume 6.2L, Neutrophils (%) (Auto) 69.4, Lymphocytes ( %) (Auto) 21.1, Monocytes (%) (Auto) 6.5, Eosinophils (%) (Auto) 2.0, Basophils (%) (Auto) 0.9, Reticulocyte Count [Pending], Sodium Level 124L, Potassium Level 3.7, Chloride Level 86L, Carbon Dioxide Level 19L, Anion Gap 19H, Blood Urea Nitrogen 11, Creatinine 0.6, Estimat Glomerular Filtration Rate , Glucose Level 101, Plasma/Serum Osmolality [Pending], Uric Acid 2.6L, Calcium Level 8.1L , Phosphorus Level 2.1L, Magnesium Level 2.0, Iron Level 85, Total Iron Binding Capacity 328, Percent Iron Saturation 26, Unsaturated Iron Binding 243, Ferritin 387H, Total Bilirubin 0.5, Aspartate Amino Transf (AST/SGOT) 23, Alanine Aminotransferase (ALT/SGPT) 20, Alkaline Phosphatase 62, Pro-B-Type Natriuretic Peptide 185, Total Protein 6.4L, Albumin 3.8, Globulin 2.6, Albumin/ Globulin Ratio 1.4, Carcinoembryonic Antigen 2.4, Vitamin B12 Level > 2000H, Folate [Pending], Thyroid Stimulating Hormone (TSH) 7.100H 10/03/16 06:15: Prothrombin Time 10.0, Prothromb Time International Ratio 1.0, Activated Partial Thromboplast Time 27 Height (Feet): 5 Height (Inches): 0.00 Weight (Pounds): 119 General Appearance: no apparent distress Objective other PE not changed RAKESH KUMAR October 03, 2016 10:03
--- NOTE | 2016-10-03 10:48 | Diagnostic Imaging Report ---
Indication: Dyspnea Comparison: None A single view chest radiograph was obtained. Findings: Heart is enlarged. Lungs are clear. Bones are osteopenic. Impression: No acute disease
[2016-10-03] MEDS ORDERED: NaCl 3% 500ml 250 ML IV ONE ×2 (11:00→14:00)
[2016-10-03] MEDS: Norco 5mg/325mg tab ORAL PRN ×2 (15:30→20:37)
--- NOTE | 2016-10-03 18:35 | Infectious Diseases Prog Note ---
Assessment/Plan Assessment/Plan A: The patient is an 80-year-old female Leukocytosis, SP Gastroenteritis, SP No evid of cholecystitis or other ID process Hypertension. History of right knee replacement. History of back pain. Depression. PLAN: will monitor the patient off of antibiotics. Monitor CBC. Monitor BMP. ultrasound of the abdomen. Subjective Constitutional: Denies: anorexia, chills, drenching sweats, fatigue, fever, no symptoms, other Allergies: Coded Allergies: No Known Allergies (Unverified , 10/01/16) Objective Vital Signs Last 24 Hour Vital Signs Date Time Temp Pulse Resp B/P Pulse Ox O2 Delivery O2 Flow Rate FiO2 10/03/16 16:36 98.8 83 17 154/61 99 Room Air 10/03/16 16:29 98.8 10/03/16 14:22 156/76 10/03/16 12:16 97.7 83 19 166/73 99 Room Air 10/03/16 08:22 97.7 82 20 156/68 98 Room Air 10/03/16 04:00 97.5 88 20 150/73 97 Room Air 10/03/16 00:00 97.7 88 20 161/66 97 Room Air 10/02/16 20:00 97.7 98 20 144/96 97 Room Air Height (Feet): 5 Height (Inches): 0.00 Weight (Pounds): 119 HEENT: anicteric Respiratory/Chest: no accessory muscle use Cardiovascular: regularly irregular Abdomen: no mass Microbiology Date/Time Source Procedure Growth Status 10/01/16 15:10 Nasal Nares MRSA Culture - Final NO METHICILLIN RESISTANT STAPH AUREUS... Complete 10/01/16 15:10 Rectum VRE Culture - Final NO VANCOMYCIN RESISTANT ENTEROCOCCUS ... Complete Laboratory Tests Test 10/03/16 06:05 10/03/16 06:15 10/03/16 14:00 White Blood Count 9.0 K/UL (4.8-10.8) Red Blood Count 3.29 M/UL (4.20-5.40) L Hemoglobin 10.1 G/DL (12.0-16.0) L Hematocrit 29.0 % (37.0-47.0) L Mean Corpuscular Volume 88 FL (80-99) Mean Corpuscular Hemoglobin 30.6 PG (27.0-31.0) Mean Corpuscular Hemoglobin Concent 34.8 G/DL (32.0-36.0) Red Cell Distribution Width 12.5 % (11.6-14.8) Platelet Count 352 K/UL (150-450) Mean Platelet Volume 6.2 FL (6.5-10.1) L Neutrophils (%) (Auto) 69.4 % (45.0-75.0) Lymphocytes (%) (Auto) 21.1 % (20.0-45.0) Monocytes (%) (Auto) 6.5 % (1.0-10.0) Eosinophils (%) (Auto) 2.0 % (0.0-3.0) Basophils (%) (Auto) 0.9 % (0.0-2.0) Reticulocyte Count 1.8 % (0.0-2.0) Sodium Level 124 mEQ/L (135-145) L Potassium Level 3.7 mEQ/L (3.4-4.9) Chloride Level 86 mEQ/L (98-107) L Carbon Dioxide Level 19 mEQ/L (20-30) L Anion Gap 19 (5-15) H Blood Urea Nitrogen 11 mg/dL (7-23) Creatinine 0.6 mg/dL (0.5-0.9) Estimat Glomerular Filtration Rate mL/min (>60) Glucose Level 101 mg/dL (74-106) Plasma/Serum Osmolality Pending Uric Acid 2.6 mg/dL (3.0-7.5) L Calcium Level 8.1 mg/dL (8.6-10.2) L Phosphorus Level 2.1 mg/dL (2.5-4.8) L Magnesium Level 2.0 mg/dL (1.7-2.5) Iron Level 85 ug/dL (37-145) Total Iron Binding Capacity 328 ug/dL (250-400) Percent Iron Saturation 26 % (15-50) Unsaturated Iron Binding 243 ug/dL (112-346) Ferritin 387 ng/mL (13-150) H Total Bilirubin 0.5 mg/dL (0.0-1.2) Aspartate Amino Transf (AST/SGOT) 23 U/L (5-40) Alanine Aminotransferase (ALT/SGPT) 20 U/L (3-33) Alkaline Phosphatase 62 U/L (35-104) Pro-B-Type Natriuretic Peptide 185 pg/mL (0-450) Total Protein 6.4 g/dL (6.6-8.7) L Albumin 3.8 g/dL (3.5-5.2) Globulin 2.6 g/dL Albumin/Globulin Ratio 1.4 (1.0-2.7) Carcinoembryonic Antigen 2.4 ng/mL Vitamin B12 Level > 2000 pg/mL (211-946) H Folate Pending Thyroid Stimulating Hormone (TSH) 7.100 uIU/mL (0.300-4.500) Prothrombin Time 10.0 SEC (9.30-11.50) Prothromb Time International Ratio 1.0 (0.9-1.1) Activated Partial Thromboplast Time 27 SEC (23-33) Stool Occult Blood Pending Current Medications Medications (Trade) Dose Ordered Sig/Jack Route PRN Reason Start Time Stop Time Status Last Admin Dose Admin Acetaminophen (Tylenol) 650 mg Q4H PRN ORAL T>100.5 10/02/16 15:00 11/01/16 14:59 Acetaminophen/ Hydrocodone Bitart ([place] 5/325) 1 tab Q4H PRN ORAL Moderate Pain (Pain Scale 4-6) 10/02/16 15:00 10/09/16 14:59 10/03/16 15:30 Dextrose (Dextrose 50%) STAT PRN IV Hypoglycemia 10/02/16 15:00 11/01/16 14:59 Duloxetine HCl (Cymbalta) 20 mg DAILY ORAL 10/03/16 09:00 11/02/16 08:59 10/03/16 09:32 Levothyroxine Sodium (Synthroid) 50 mcg DAILY@0630 ORAL 10/04/16 06:30 11/03/16 06:29 Lorazepam (Ativan 2mg/ml 1ml) 0.5 mg Q4H PRN IV For Anxiety 10/02/16 15:00 10/09/16 14:59 Morphine Sulfate (Morphine Sulfate) 1 mg Q4H PRN IVP Severe Pain (Pain Scale 7-10) 10/02/16 15:00 10/09/16 14:59 Ondansetron HCl (Zofran) 4 mg Q6H PRN IVP Nausea & Vomiting 10/02/16 15:00 11/01/16 14:59 Pantoprazole (Protonix) 40 mg Q12HR IVP 10/02/16 21:00 11/01/16 20:59 10/03/16 09:18 Polyethylene Glycol (Miralax) 17 gm HSPRN PRN ORAL Constipation 10/02/16 21:00 11/01/16 20:59 Sodium Chloride (Hypertonic Saline) 250 ml @ 30 mls/hr ONCE ONCE IV 10/03/16 11:00 10/03/16 19:19 10/03/16 11:50 Zolpidem Tartrate 5 mg 5 mg HSPRN PRN ORAL Insomnia 10/02/16 21:00 11/01/16 20:59 RORY TURNER M.D. October 03, 2016 18:35
--- NOTE | 2016-10-03 21:56 | Pulmonology Progress Note ---
Assessment/Plan Problems: (1) Hyponatremia (2) Abdominal pain (3) Vomiting (4) Hx of knee surgery (5) Depression (6) HTN (hypertension) Assessment/Plan Na better TSH slightly high start synthyroid GI evaluation anemia w/u. dvt propylaxis cxr showed cardiomegaly, will get echo social service consult pt/ot Subjective ROS Limited/Unobtainable: No Constitutional: Reports: no symptoms HEENT: Repors: no symptoms Respiratory: Reports: no symptoms Allergies: Coded Allergies: No Known Allergies (Unverified , 10/01/16) Objective Last 24 Hour Vital Signs Date Time Temp Pulse Resp B/P Pulse Ox O2 Delivery O2 Flow Rate FiO2 10/03/16 20:00 98.9 85 18 150/69 97 Room Air 10/03/16 16:36 98.8 83 17 154/61 99 Room Air 10/03/16 16:29 98.8 10/03/16 14:22 156/76 10/03/16 12:16 97.7 83 19 166/73 99 Room Air 10/03/16 08:22 97.7 82 20 156/68 98 Room Air 10/03/16 04:00 97.5 88 20 150/73 97 Room Air 10/03/16 00:00 97.7 88 20 161/66 97 Room Air Intake and Output 10/02/16 10/03/16 19:00 07:00 Intake Total 912 ml 115 ml Output Total 900 ml Balance 12 ml 115 ml Intake Oral 820 ml IV Total 92 ml 115 ml Output Urine Total 900 ml # Voids 1 2 # Bowel Movements 5 General Appearance: cachetic HEENT: normocephalic, atraumatic Respiratory/Chest: chest wall non-tender, lungs clear Breasts: no masses Cardiovascular: normal peripheral pulses, normal rate Abdomen: normal bowel sounds, soft, non tender Extremities: no cyanosis Skin: no rash 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 Complete 10/01/16 15:10 Rectum VRE Culture - Final NO VANCOMYCIN RESISTANT ENTEROCOCCUS ... Complete Laboratory Tests 10/03/16 06:05: White Blood Count 9.0, Red Blood Count 3.29L, Hemoglobin 10.1L, Hematocrit 29.0L , Mean Corpuscular Volume 88, Mean Corpuscular Hemoglobin 30.6, Mean Corpuscular Hemoglobin Concent 34.8, Red Cell Distribution Width 12.5, Platelet Count 352, Mean Platelet Volume 6.2L, Neutrophils (%) (Auto) 69.4, Lymphocytes ( %) (Auto) 21.1, Monocytes (%) (Auto) 6.5, Eosinophils (%) (Auto) 2.0, Basophils (%) (Auto) 0.9, Reticulocyte Count 1.8, Sodium Level 124L, Potassium Level 3.7, Chloride Level 86L, Carbon Dioxide Level 19L, Anion Gap 19H, Blood Urea Nitrogen 11, Creatinine 0.6, Estimat Glomerular Filtration Rate , Glucose Level 101, Plasma/Serum Osmolality [Pending], Uric Acid 2.6L, Calcium Level 8.1L, Phosphorus Level 2.1L, Magnesium Level 2.0, Iron Level 85, Total Iron Binding Capacity 328, Percent Iron Saturation 26, Unsaturated Iron Binding 243, Ferritin 387H, Total Bilirubin 0.5, Aspartate Amino Transf (AST/SGOT) 23, Alanine Aminotransferase (ALT/SGPT) 20, Alkaline Phosphatase 62, Pro-B-Type Natriuretic Peptide 185, Total Protein 6.4L, Albumin 3.8, Globulin 2.6, Albumin/ Globulin Ratio 1.4, Carcinoembryonic Antigen 2.4, Vitamin B12 Level > 2000H, Folate [Pending], Thyroid Stimulating Hormone (TSH) 7.100H 10/03/16 06:15: Prothrombin Time 10.0, Prothromb Time International Ratio 1.0, Activated Partial Thromboplast Time 27 10/03/16 14:00: Stool Occult Blood [Pending] Current Medications Medications (Trade) Dose Ordered Sig/Jack Route PRN Reason Start Time Stop Time Status Last Admin Dose Admin Acetaminophen (Tylenol) 650 mg Q4H PRN ORAL T>100.5 10/02/16 15:00 11/01/16 14:59 Acetaminophen/ Hydrocodone Bitart ([place] 5/325) 1 tab Q4H PRN ORAL Moderate Pain (Pain Scale 4-6) 10/02/16 15:00 10/09/16 14:59 10/03/16 20:37 Dextrose (Dextrose 50%) STAT PRN IV Hypoglycemia 10/02/16 15:00 11/01/16 14:59 Duloxetine HCl (Cymbalta) 20 mg DAILY ORAL 10/03/16 09:00 11/02/16 08:59 10/03/16 09:32 Levothyroxine Sodium (Synthroid) 50 mcg DAILY@0630 ORAL 10/04/16 06:30 11/03/16 06:29 Lorazepam (Ativan 2mg/ml 1ml) 0.5 mg Q4H PRN IV For Anxiety 10/02/16 15:00 10/09/16 14:59 Morphine Sulfate (Morphine Sulfate) 1 mg Q4H PRN IVP Severe Pain (Pain Scale 7-10) 10/02/16 15:00 10/09/16 14:59 Ondansetron HCl (Zofran) 4 mg Q6H PRN IVP Nausea & Vomiting 10/02/16 15:00 11/01/16 14:59 Pantoprazole (Protonix) 40 mg Q12HR IVP 10/02/16 21:00 11/01/16 20:59 10/03/16 20:36 Polyethylene Glycol (Miralax) 17 gm HSPRN PRN ORAL Constipation 10/02/16 21:00 11/01/16 20:59 Zolpidem Tartrate (Ambien) 5 mg HSPRN PRN ORAL Insomnia 10/02/16 21:00 11/01/16 20:59 ALINE HITCHCOCK October 03, 2016 21:56
--- NOTE | 2016-10-03 22:27 | General Progress Note ---
Assessment/Plan Assessment/Plan Assessment (1) GERD (gastroesophageal reflux disease) (2) Abdominal pain (3) Hyponatremia (4) Vomiting (5) Hypothyroid Recommendations symptomatic treatment at this time >> recommend EGD/colonoscopy to evaluate for her anemia zofran prn anemia work up OB stool r/o GI bleed monitor H&H, transfuse prn ppi regular diet, tolerating electrolyte replacement fu labs Subjective Allergies: Coded Allergies: No Known Allergies (Unverified , 10/01/16) Subjective Calm no complaints Objective Last 24 Hour Vital Signs Date Time Temp Pulse Resp B/P Pulse Ox O2 Delivery O2 Flow Rate FiO2 10/03/16 20:00 98.9 85 18 150/69 97 Room Air 10/03/16 16:36 98.8 83 17 154/61 99 Room Air 10/03/16 16:29 98.8 10/03/16 14:22 156/76 10/03/16 12:16 97.7 83 19 166/73 99 Room Air 10/03/16 08:22 97.7 82 20 156/68 98 Room Air 10/03/16 04:00 97.5 88 20 150/73 97 Room Air 10/03/16 00:00 97.7 88 20 161/66 97 Room Air Intake and Output 10/02/16 10/03/16 19:00 07:00 Intake Total 912 ml 115 ml Output Total 900 ml Balance 12 ml 115 ml Intake Oral 820 ml IV Total 92 ml 115 ml Output Urine Total 900 ml # Voids 1 2 # Bowel Movements 5 Laboratory Tests 10/03/16 06:05: White Blood Count 9.0, Red Blood Count 3.29L, Hemoglobin 10.1L, Hematocrit 29.0L , Mean Corpuscular Volume 88, Mean Corpuscular Hemoglobin 30.6, Mean Corpuscular Hemoglobin Concent 34.8, Red Cell Distribution Width 12.5, Platelet Count 352, Mean Platelet Volume 6.2L, Neutrophils (%) (Auto) 69.4, Lymphocytes ( %) (Auto) 21.1, Monocytes (%) (Auto) 6.5, Eosinophils (%) (Auto) 2.0, Basophils (%) (Auto) 0.9, Reticulocyte Count 1.8, Sodium Level 124L, Potassium Level 3.7, Chloride Level 86L, Carbon Dioxide Level 19L, Anion Gap 19H, Blood Urea Nitrogen 11, Creatinine 0.6, Estimat Glomerular Filtration Rate , Glucose Level 101, Plasma/Serum Osmolality [Pending], Uric Acid 2.6L, Calcium Level 8.1L, Phosphorus Level 2.1L, Magnesium Level 2.0, Iron Level 85, Total Iron Binding Capacity 328, Percent Iron Saturation 26, Unsaturated Iron Binding 243, Ferritin 387H, Total Bilirubin 0.5, Aspartate Amino Transf (AST/SGOT) 23, Alanine Aminotransferase (ALT/SGPT) 20, Alkaline Phosphatase 62, Pro-B-Type Natriuretic Peptide 185, Total Protein 6.4L, Albumin 3.8, Globulin 2.6, Albumin/ Globulin Ratio 1.4, Carcinoembryonic Antigen 2.4, Vitamin B12 Level > 2000H, Folate [Pending], Thyroid Stimulating Hormone (TSH) 7.100H 10/03/16 06:15: Prothrombin Time 10.0, Prothromb Time International Ratio 1.0, Activated Partial Thromboplast Time 10/03/16 14:00: Stool Occult Blood [Pending] Height (Feet): 5 Height (Inches): 0.00 Weight (Pounds): 119 Objective WDWN LW NCAT supple CTA RRR Soft ND NT no edema ALEXANDER PABLO October 03, 2016 22:27
[2016-10-04] VITALS: BP 139/70
[2016-10-04 04:00] VITALS: BP 138/71
[2016-10-04] MEDS: Norco 5mg/325mg tab ORAL PRN ×4 (06:02→21:22)
[2016-10-04 07:40] LABS: BASOPHILS % (AUTO) 1.4 % (0.0-2.0); EOSINOPHILS % (AUTO) 3.6 % (0.0-3.0); LYMPHOCYTES % (AUTO) 28.6 % (20.0-45.0); MEAN CORPUSCULAR HGB CONC 35.2 G/DL (32.0-36.0); MEAN CORPUSCULAR VOLUME 88 FL (80-99); MEAN PLATELET VOLUME 6.7 FL (6.5-10.1); MONOCYTES % (AUTO) 6.7 % (1.0-10.0); NEUTROPHILS % (AUTO) 59.8 % (45.0-75.0); PLATELET COUNT 291 K/UL (150-450); RED CELL DISTRIBUTION WIDTH 12.4 % (11.6-14.8); WHITE BLOOD COUNT 8.1 K/UL (4.8-10.8)
[2016-10-04 07:55] LABS: ALANINE AMINOTRANSFERASE 18 U/L (3-33); ALBUMIN/GLOBULIN RATIO 1.3 (1.0-2.7); ANION GAP 15 (5-15); ASPARTATE AMINO TRANSFERASE 22 U/L (5-40); CALCIUM 8.2 mg/dL (8.6-10.2); CARBON DIOXIDE 22 mEQ/L (20-30); CHLORIDE 85 mEQ/L (98-107); CREATININE 0.6 mg/dL (0.5-0.9); HEMOLYSIS 16; MAGNESIUM 1.9 mg/dL (1.7-2.5); PHOSPHORUS 2.1 mg/dL (2.5-4.8); POTASSIUM 3.8 mEQ/L (3.4-4.9); SODIUM 122 mEQ/L (135-145); TOTAL PROTEIN 6.7 g/dL (6.6-8.7); URIC ACID 2.4 mg/dL (3.0-7.5)
[2016-10-04 08:13] VITALS: BP 156/68
[2016-10-04] MEDS: Pantoprazole Inj IVP SCH (08:16)
--- NOTE | 2016-10-04 09:37 | Diagnostic Imaging Report ---
Indication:Abdominal pain Technique: Grayscale and duplex Doppler imaging of the abdomen performed. Comparison: None Findings: Multiple small gallstones are present. Sonographic Parada's is negative per technologist. There is no wall thickening of the gallbladder. CBD is 7 mm. Questionable stone in the proximal part of the CBD. This is doubtful. Bilateral renal cysts are present The liver, demonstrated part of the pancreas, IVC, spleen appear unremarkable. Aorta shows mural calcification. There is no biliary ductal dilatation identified. Doppler evaluation of the main portal vein shows patency. There is no ascites. No hydronephrosis seen. Impression: Cholelithiasis. Question of the proximal CBD stone. The finding is doubtful that there is no biliary ductal dilatation. That said, an MRCP could be done as warranted clinically. Atherosclerotic vascular disease
--- NOTE | 2016-10-04 10:29 | General Progress Note ---
Assessment/Plan Problem List: (1) Hypothyroid ICD Codes: E03.9 - Hypothyroidism, unspecified SNOMED: 28956329 (2) GERD (gastroesophageal reflux disease) ICD Codes: K21.9 - Gastro-esophageal reflux disease without esophagitis SNOMED: 865414324 (3) HTN (hypertension) ICD Codes: I10 - Essential (primary) hypertension SNOMED: 63513173 (4) Abdominal pain ICD Codes: R10.9 - Unspecified abdominal pain SNOMED: 13234722 Qualifiers: Qualified Codes: R10.84 - Generalized abdominal pain Assessment/Plan mild hypothyroidism I concur with Levothyroxine 25 mcg daily follow TSH in 3-4 months Subjective Allergies: Coded Allergies: No Known Allergies (Unverified , 10/01/16) All Systems: reviewed and negative except above Subjective bedside echocardiogram in progress Objective Last 24 Hour Vital Signs Date Time Temp Pulse Resp B/P Pulse Ox O2 Delivery O2 Flow Rate FiO2 10/04/16 08:13 98.2 82 20 156/68 98 Room Air 10/04/16 04:00 98.1 82 20 138/71 97 Room Air 10/04/16 00:00 97.9 80 18 139/70 95 Room Air 10/03/16 20:00 98.9 85 18 150/69 97 Room Air 10/03/16 16:36 98.8 83 17 154/61 99 Room Air 10/03/16 16:29 98.8 10/03/16 14:22 156/76 10/03/16 12:16 97.7 83 19 166/73 99 Room Air Intake and Output 10/03/16 10/04/16 19:00 07:00 Intake Total 540 ml Balance 540 ml Intake Oral 360 ml IV Total 180 ml # Voids 2 1 # Bowel Movements 1 Laboratory Tests 10/03/16 14:00: Stool Occult Blood [Pending] 10/04/16 06:00: White Blood Count 8.1, Red Blood Count 3.30L, Hemoglobin 10.2L, Hematocrit 29.1L , Mean Corpuscular Volume 88, Mean Corpuscular Hemoglobin 31.0, Mean Corpuscular Hemoglobin Concent 35.2, Red Cell Distribution Width 12.4, Platelet Count 291, Mean Platelet Volume 6.7, Neutrophils (%) (Auto) 59.8, Lymphocytes (% ) (Auto) 28.6, Monocytes (%) (Auto) 6.7, Eosinophils (%) (Auto) 3.6H, Basophils (%) (Auto) 1.4, Sodium Level 122L, Potassium Level 3.8, Chloride Level 85L, Carbon Dioxide Level 22, Anion Gap 15, Blood Urea Nitrogen 14, Creatinine 0.6, Estimat Glomerular Filtration Rate , Glucose Level 101, Plasma/Serum Osmolality [Pending], Uric Acid 2.4L, Calcium Level 8.2L, Phosphorus Level 2.1L, Magnesium Level 1.9, Total Bilirubin 0.5, Aspartate Amino Transf (AST/SGOT) 22, Alanine Aminotransferase (ALT/SGPT) 18, Alkaline Phosphatase 60, Total Protein 6.7, Albumin 3.8, Globulin 2.9, Albumin/Globulin Ratio 1.3 Height (Feet): 5 Height (Inches): 0.00 Weight (Pounds): 119 General Appearance: no apparent distress Neck: normal alignment Cardiovascular: regular rhythm Respiratory/Chest: lungs clear Abdomen: normal bowel sounds Edema: no edema noted Arm (L), no edema noted Arm (R), no edema noted Leg (L), no edema noted Leg (R), no edema noted Pedal (L), no edema noted Pedal (R), no edema noted Generalized Objective Current Medications Medications (Trade) Dose Ordered Sig/Jack Route PRN Reason Start Time Stop Time Status Last Admin Dose Admin Acetaminophen (Tylenol) 650 mg Q4H PRN ORAL T>100.5 10/02/16 15:00 11/01/16 14:59 Acetaminophen/ Hydrocodone Bitart ([place] 5/325) 1 tab Q4H PRN ORAL Moderate Pain (Pain Scale 4-6) 10/02/16 15:00 10/09/16 14:59 10/04/16 06:02 Dextrose (Dextrose 50%) STAT PRN IV Hypoglycemia 10/02/16 15:00 11/01/16 14:59 Duloxetine HCl (Cymbalta) 20 mg DAILY ORAL 10/03/16 09:00 11/02/16 08:59 10/04/16 08:15 Furosemide (Lasix) 10 mg EVERY 6 HOURS IV 10/04/16 12:00 11/03/16 11:59 Levothyroxine Sodium (Synthroid) 50 mcg DAILY@0630 ORAL 10/04/16 06:30 11/03/16 06:29 10/04/16 06:00 Lorazepam (Ativan 2mg/ml 1ml) 0.5 mg Q4H PRN IV For Anxiety 10/02/16 15:00 10/09/16 14:59 Morphine Sulfate (Morphine Sulfate) 1 mg Q4H PRN IVP Severe Pain (Pain Scale 7-10) 10/02/16 15:00 10/09/16 14:59 Ondansetron HCl (Zofran) 4 mg Q6H PRN IVP Nausea & Vomiting 10/02/16 15:00 11/01/16 14:59 Pantoprazole (Protonix) 40 mg EVERY 12 HOURS ORAL 10/04/16 21:00 11/03/16 20:59 Polyethylene Glycol (Miralax) 17 gm HSPRN PRN ORAL Constipation 10/02/16 21:00 11/01/16 20:59 Zolpidem Tartrate (Ambien) 5 mg HSPRN PRN ORAL Insomnia 10/02/16 21:00 11/01/16 20:59 LENORE FRIED October 04, 2016 10:29
[2016-10-04 12:12] VITALS: BP 152/62
--- NOTE | 2016-10-04 13:50 | General Progress Note ---
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 per orders Subjective ROS Limited/Unobtainable: No Constitutional: Reports: malaise Allergies: Coded Allergies: No Known Allergies (Unverified , 10/01/16) Objective Last 24 Hour Vital Signs Date Time Temp Pulse Resp B/P Pulse Ox O2 Delivery O2 Flow Rate FiO2 10/04/16 12:12 98.0 86 20 152/62 99 Room Air 10/04/16 08:13 98.2 82 20 156/68 98 Room Air 10/04/16 04:00 98.1 82 20 138/71 97 Room Air 10/04/16 00:00 97.9 80 18 139/70 95 Room Air 10/03/16 20:00 98.9 85 18 150/69 97 Room Air 10/03/16 16:36 98.8 83 17 154/61 99 Room Air 10/03/16 16:29 98.8 10/03/16 14:22 156/76 Intake and Output 10/03/16 10/04/16 19:00 07:00 Intake Total 540 ml Balance 540 ml Intake Oral 360 ml IV Total 180 ml # Voids 2 1 # Bowel Movements 1 Laboratory Tests 10/03/16 14:00: Stool Occult Blood Negative 10/04/16 06:00: White Blood Count 8.1, Red Blood Count 3.30L, Hemoglobin 10.2L, Hematocrit 29.1L , Mean Corpuscular Volume 88, Mean Corpuscular Hemoglobin 31.0, Mean Corpuscular Hemoglobin Concent 35.2, Red Cell Distribution Width 12.4, Platelet Count 291, Mean Platelet Volume 6.7, Neutrophils (%) (Auto) 59.8, Lymphocytes (% ) (Auto) 28.6, Monocytes (%) (Auto) 6.7, Eosinophils (%) (Auto) 3.6H, Basophils (%) (Auto) 1.4, Sodium Level 122L, Potassium Level 3.8, Chloride Level 85L, Carbon Dioxide Level 22, Anion Gap 15, Blood Urea Nitrogen 14, Creatinine 0.6, Estimat Glomerular Filtration Rate , Glucose Level 101, Plasma/Serum Osmolality [Pending], Uric Acid 2.4L, Calcium Level 8.2L, Phosphorus Level 2.1L, Magnesium Level 1.9, Total Bilirubin 0.5, Aspartate Amino Transf (AST/SGOT) 22, Alanine Aminotransferase (ALT/SGPT) 18, Alkaline Phosphatase 60, Total Protein 6.7, Albumin 3.8, Globulin 2.9, Albumin/Globulin Ratio 1.3 Height (Feet): 5 Height (Inches): 0.00 Weight (Pounds): 119 General Appearance: no apparent distress Edema: no edema noted Arm (L), no edema noted Arm (R), no edema noted Leg (L), no edema noted Leg (R), no edema noted Pedal (L), no edema noted Pedal (R), no edema noted Generalized Objective other PE not changed RAKESH KUMAR October 04, 2016 13:50
--- NOTE | 2016-10-04 14:51 | General Progress Note ---
Assessment/Plan Assessment/Plan Assessment (1) GERD (gastroesophageal reflux disease) (2) Abdominal pain (3) Hyponatremia (4) Vomiting (5) Hypothyroid Recommendations symptomatic treatment at this time >> recommend EGD/colonoscopy to evaluate for her anemia zofran prn anemia work up OB stool r/o GI bleed monitor H&H, transfuse prn ppi regular diet, tolerating electrolyte replacement fu labs Subjective Allergies: Coded Allergies: No Known Allergies (Unverified , 10/01/16) Subjective feels OK notes slight nausea Objective Last 24 Hour Vital Signs Date Time Temp Pulse Resp B/P Pulse Ox O2 Delivery O2 Flow Rate FiO2 10/04/16 12:12 98.0 86 20 152/62 99 Room Air 10/04/16 08:13 98.2 82 20 156/68 98 Room Air 10/04/16 04:00 98.1 82 20 138/71 97 Room Air 10/04/16 00:00 97.9 80 18 139/70 95 Room Air 10/03/16 20:00 98.9 85 18 150/69 97 Room Air 10/03/16 16:36 98.8 83 17 154/61 99 Room Air 10/03/16 16:29 98.8 Intake and Output 10/03/16 10/04/16 19:00 07:00 Intake Total 540 ml Balance 540 ml Intake Oral 360 ml IV Total 180 ml # Voids 2 1 # Bowel Movements 1 Laboratory Tests 10/04/16 06:00: White Blood Count 8.1, Red Blood Count 3.30L, Hemoglobin 10.2L, Hematocrit 29.1L , Mean Corpuscular Volume 88, Mean Corpuscular Hemoglobin 31.0, Mean Corpuscular Hemoglobin Concent 35.2, Red Cell Distribution Width 12.4, Platelet Count 291, Mean Platelet Volume 6.7, Neutrophils (%) (Auto) 59.8, Lymphocytes (% ) (Auto) 28.6, Monocytes (%) (Auto) 6.7, Eosinophils (%) (Auto) 3.6H, Basophils (%) (Auto) 1.4, Sodium Level 122L, Potassium Level 3.8, Chloride Level 85L, Carbon Dioxide Level 22, Anion Gap 15, Blood Urea Nitrogen 14, Creatinine 0.6, Estimat Glomerular Filtration Rate , Glucose Level 101, Plasma/Serum Osmolality [Pending], Uric Acid 2.4L, Calcium Level 8.2L, Phosphorus Level 2.1L, Magnesium Level 1.9, Total Bilirubin 0.5, Aspartate Amino Transf (AST/SGOT) 22, Alanine Aminotransferase (ALT/SGPT) 18, Alkaline Phosphatase 60, Total Protein 6.7, Albumin 3.8, Globulin 2.9, Albumin/Globulin Ratio 1.3 Height (Feet): 5 Height (Inches): 0.00 Weight (Pounds): 119 Objective WDWN LW NCAT supple CTA RRR Soft ND NT no edema ALEXANDER PABLO October 04, 2016 14:51
[2016-10-04 15:45] VITALS: BP 143/74
--- NOTE | 2016-10-04 18:55 | Pulmonology Progress Note ---
Assessment/Plan Problems: (1) Hyponatremia (2) Abdominal pain (3) Vomiting (4) Hx of knee surgery (5) Depression (6) HTN (hypertension) Assessment/Plan Na better synthyroid GI evaluation anemia w/u. dvt prophylaxis endoscopy planned social service consult pt/ot Subjective ROS Limited/Unobtainable: No Constitutional: Reports: no symptoms Allergies: Coded Allergies: No Known Allergies (Unverified , 10/01/16) Objective Last 24 Hour Vital Signs Date Time Temp Pulse Resp B/P Pulse Ox O2 Delivery O2 Flow Rate FiO2 10/04/16 15:45 98.4 92 20 143/74 98 Room Air 10/04/16 12:12 98.0 86 20 152/62 99 Room Air 10/04/16 08:13 98.2 82 20 156/68 98 Room Air 10/04/16 04:00 98.1 82 20 138/71 97 Room Air 10/04/16 00:00 97.9 80 18 139/70 95 Room Air 10/03/16 20:00 98.9 85 18 150/69 97 Room Air Intake and Output 10/03/16 10/04/16 19:00 07:00 Intake Total 540 ml Balance 540 ml Intake Oral 360 ml IV Total 180 ml # Voids 2 1 # Bowel Movements 1 General Appearance: WD/WN HEENT: normocephalic, atraumatic Respiratory/Chest: chest wall non-tender, lungs clear Cardiovascular: normal peripheral pulses, normal rate Abdomen: normal bowel sounds Extremities: no cyanosis Laboratory Tests 10/04/16 06:00: White Blood Count 8.1, Red Blood Count 3.30L, Hemoglobin 10.2L, Hematocrit 29.1L , Mean Corpuscular Volume 88, Mean Corpuscular Hemoglobin 31.0, Mean Corpuscular Hemoglobin Concent 35.2, Red Cell Distribution Width 12.4, Platelet Count 291, Mean Platelet Volume 6.7, Neutrophils (%) (Auto) 59.8, Lymphocytes (% ) (Auto) 28.6, Monocytes (%) (Auto) 6.7, Eosinophils (%) (Auto) 3.6H, Basophils (%) (Auto) 1.4, Sodium Level 122L, Potassium Level 3.8, Chloride Level 85L, Carbon Dioxide Level 22, Anion Gap 15, Blood Urea Nitrogen 14, Creatinine 0.6, Estimat Glomerular Filtration Rate , Glucose Level 101, Plasma/Serum Osmolality [Pending], Uric Acid 2.4L, Calcium Level 8.2L, Phosphorus Level 2.1L, Magnesium Level 1.9, Total Bilirubin 0.5, Aspartate Amino Transf (AST/SGOT) 22, Alanine Aminotransferase (ALT/SGPT) 18, Alkaline Phosphatase 60, Total Protein 6.7, Albumin 3.8, Globulin 2.9, Albumin/Globulin Ratio 1.3 Current Medications Medications (Trade) Dose Ordered Sig/Jack Route PRN Reason Start Time Stop Time Status Last Admin Dose Admin Acetaminophen (Tylenol) 650 mg Q4H PRN ORAL T>100.5 10/02/16 15:00 11/01/16 14:59 Acetaminophen/ Hydrocodone Bitart ([place] 5/325) 1 tab Q4H PRN ORAL Moderate Pain (Pain Scale 4-6) 10/02/16 15:00 10/09/16 14:59 10/04/16 16:24 Dextrose (Dextrose 50%) STAT PRN IV Hypoglycemia 10/02/16 15:00 11/01/16 14:59 Duloxetine HCl (Cymbalta) 20 mg DAILY ORAL 10/03/16 09:00 11/02/16 08:59 10/04/16 08:15 Furosemide (Lasix) 10 mg EVERY 6 HOURS IV 10/04/16 12:00 11/03/16 11:59 10/04/16 17:43 Levothyroxine Sodium (Synthroid) 50 mcg DAILY@0630 ORAL 10/04/16 06:30 11/03/16 06:29 10/04/16 06:00 Lorazepam (Ativan 2mg/ml 1ml) 0.5 mg Q4H PRN IV For Anxiety 10/02/16 15:00 10/09/16 14:59 Morphine Sulfate (Morphine Sulfate) 1 mg Q4H PRN IVP Severe Pain (Pain Scale 7-10) 10/02/16 15:00 10/09/16 14:59 Ondansetron HCl (Zofran) 4 mg Q6H PRN IVP Nausea & Vomiting 10/02/16 15:00 11/01/16 14:59 10/04/16 14:31 Pantoprazole (Protonix) 40 mg EVERY 12 HOURS ORAL 10/04/16 21:00 6/27/17 20:59 Polyethylene Glycol (Miralax) 17 gm HSPRN PRN ORAL Constipation 10/02/16 21:00 11/01/16 20:59 Zolpidem Tartrate (Ambien) 5 mg HSPRN PRN ORAL Insomnia 10/02/16 21:00 11/01/16 20:59 ALINE HITCHCOCK October 04, 2016 18:55
[2016-10-04 20:00] VITALS: BP 126/68
[2016-10-05] VITALS: BP 150/71
[2016-10-05] MEDS: Norco 5mg/325mg tab ORAL PRN ×5 (02:01→20:18)
[2016-10-05 04:00] VITALS: BP 147/61
[2016-10-05 07:06] LABS: ALANINE AMINOTRANSFERASE 17 U/L (3-33); ALBUMIN/GLOBULIN RATIO 1.1 (1.0-2.7); ANION GAP 16 (5-15); ASPARTATE AMINO TRANSFERASE 19 U/L (5-40); CALCIUM 8.3 mg/dL (8.6-10.2); CARBON DIOXIDE 24 mEQ/L (20-30); CHLORIDE 80 mEQ/L (98-107); CREATININE 0.9 mg/dL (0.5-0.9); HEMOLYSIS 0; MAGNESIUM 1.9 mg/dL (1.7-2.5); PHOSPHORUS 2.9 mg/dL (2.5-4.8); POTASSIUM 3.5 mEQ/L (3.4-4.9); SODIUM 120 mEQ/L (135-145); TOTAL PROTEIN 7.1 g/dL (6.6-8.7); URIC ACID 3.5 mg/dL (3.0-7.5)
[2016-10-05 08:00] VITALS: BP 138/68
--- NOTE | 2016-10-05 08:00 | General Progress Note ---
Assessment/Plan Problem List: (1) Hypothyroid ICD Codes: E03.9 - Hypothyroidism, unspecified SNOMED: 37198845 (2) GERD (gastroesophageal reflux disease) ICD Codes: K21.9 - Gastro-esophageal reflux disease without esophagitis SNOMED: 460127077 (3) HTN (hypertension) ICD Codes: I10 - Essential (primary) hypertension SNOMED: 29930079 (4) Abdominal pain ICD Codes: R10.9 - Unspecified abdominal pain SNOMED: 26687066 Qualifiers: Qualified Codes: R10.84 - Generalized abdominal pain Assessment/Plan mild hypothyroidism continue Levothyroxine 50 mcg daily follow TSH in 3-4 months I will sign off Subjective Allergies: Coded Allergies: No Known Allergies (Unverified , 10/01/16) All Systems: reviewed and negative except above Subjective events noted - interval notes reviewed Objective Last 24 Hour Vital Signs Date Time Temp Pulse Resp B/P Pulse Ox O2 Delivery O2 Flow Rate FiO2 10/05/16 04:00 97.5 80 20 147/61 Nasal Cannula 2.0 10/05/16 00:00 98.2 84 18 150/71 96 Nasal Cannula 10/04/16 20:00 98.4 91 18 126/68 96 Room Air 10/04/16 15:45 98.4 92 20 143/74 98 Room Air 10/04/16 12:12 98.0 86 20 152/62 99 Room Air 10/04/16 08:13 98.2 82 20 156/68 98 Room Air Intake and Output 10/04/16 10/05/16 19:00 07:00 Intake Total 360 ml 240 ml Output Total 1200 ml 775 ml Balance -840 ml -535 ml Intake Oral 360 ml 240 ml Output Urine Total 1200 ml 775 ml Laboratory Tests 10/05/16 04:30: Sodium Level 120L, Potassium Level 3.5, Chloride Level 80L, Carbon Dioxide Level 24, Anion Gap 16H, Blood Urea Nitrogen 20, Creatinine 0.9, Estimat Glomerular Filtration Rate , Glucose Level 109H, Uric Acid 3.5, Calcium Level 8.3L, Phosphorus Level 2.9, Magnesium Level 1.9, Total Bilirubin 0.5, Aspartate Amino Transf (AST/SGOT) 19, Alanine Aminotransferase (ALT/SGPT) 17, Alkaline Phosphatase 56, Total Protein 7.1, Albumin 3.8, Globulin 3.3, Albumin/Globulin Ratio 1.1 Height (Feet): 5 Height (Inches): 0.00 Weight (Pounds): 119 General Appearance: no apparent distress Neck: normal alignment Cardiovascular: regular rhythm Respiratory/Chest: lungs clear Abdomen: normal bowel sounds Objective Current Medications Medications (Trade) Dose Ordered Sig/Jack Route PRN Reason Start Time Stop Time Status Last Admin Dose Admin Acetaminophen (Tylenol) 650 mg Q4H PRN ORAL T>100.5 10/02/16 15:00 11/01/16 14:59 Acetaminophen/ Hydrocodone Bitart ([place] 5/325) 1 tab Q4H PRN ORAL Moderate Pain (Pain Scale 4-6) 10/02/16 15:00 10/09/16 14:59 10/05/16 06:01 Dextrose (Dextrose 50%) STAT PRN IV Hypoglycemia 10/02/16 15:00 11/01/16 14:59 Duloxetine HCl (Cymbalta) 20 mg DAILY ORAL 10/03/16 09:00 11/02/16 08:59 10/04/16 08:15 Furosemide (Lasix) 10 mg EVERY 6 HOURS IV 10/04/16 12:00 11/03/16 11:59 10/05/16 06:00 Levothyroxine Sodium (Synthroid) 50 mcg DAILY@0630 ORAL 10/04/16 06:30 11/03/16 06:29 10/05/16 06:01 Lorazepam (Ativan 2mg/ml 1ml) 0.5 mg Q4H PRN IV For Anxiety 10/02/16 15:00 10/09/16 14:59 Morphine Sulfate (Morphine Sulfate) 1 mg Q4H PRN IVP Severe Pain (Pain Scale 7-10) 10/02/16 15:00 10/09/16 14:59 Ondansetron HCl (Zofran) 4 mg Q6H PRN IVP Nausea & Vomiting 10/02/16 15:00 11/01/16 14:59 10/05/16 06:00 Pantoprazole (Protonix) 40 mg EVERY 12 HOURS ORAL 10/04/16 21:00 11/03/16 20:59 10/04/16 21:19 Polyethylene Glycol (Miralax) 17 gm HSPRN PRN ORAL Constipation 10/02/16 21:00 11/01/16 20:59 Zolpidem Tartrate (Ambien) 5 mg HSPRN PRN ORAL Insomnia 10/02/16 21:00 11/01/16 20:59 LENORE FRIED October 05, 2016 08:00
--- NOTE | 2016-10-05 08:09 | General Progress Note ---
Assessment/Plan Problem List: (1) Fatty liver ICD Codes: K76.0 - Fatty (change of) liver, not elsewhere classified SNOMED: 813439554 (2) Cholelithiasis ICD Codes: K80.20 - Calculus of gallbladder without cholecystitis without obstruction SNOMED: 333878440 (3) Diverticulosis ICD Codes: K57.90 - Diverticulosis of intestine, part unspecified, without perforation or abscess without bleeding SNOMED: 877943160 (4) Anemia ICD Codes: D64.9 - Anemia, unspecified SNOMED: 253583178 (5) GERD (gastroesophageal reflux disease) ICD Codes: K21.9 - Gastro-esophageal reflux disease without esophagitis SNOMED: 193873750 (6) HTN (hypertension) ICD Codes: I10 - Essential (primary) hypertension SNOMED: 15926638 (7) Depression ICD Codes: F32.9 - Major depressive disorder, single episode, unspecified SNOMED: 93019363 (8) Abdominal pain ICD Codes: R10.9 - Unspecified abdominal pain SNOMED: 19797798 Qualifiers: Qualified Codes: R10.84 - Generalized abdominal pain (9) Hx of knee surgery ICD Codes: Z98.890 - Other specified postprocedural states SNOMED: 549358636, 415628017 Assessment/Plan add mylanta EGD in AM cont PPI colonoscopy when NA is corrected MRCP r/o CBD stone repeat LFTS Subjective ROS Limited/Unobtainable: Yes Allergies: Coded Allergies: No Known Allergies (Unverified , 10/01/16) Subjective c/o abd pain Objective Last 24 Hour Vital Signs Date Time Temp Pulse Resp B/P Pulse Ox O2 Delivery O2 Flow Rate FiO2 10/05/16 04:00 97.5 80 20 147/61 Nasal Cannula 2.0 10/05/16 00:00 98.2 84 18 150/71 96 Nasal Cannula 10/04/16 20:00 98.4 91 18 126/68 96 Room Air 10/04/16 15:45 98.4 92 20 143/74 98 Room Air 10/04/16 12:12 98.0 86 20 152/62 99 Room Air 10/04/16 08:13 98.2 82 20 156/68 98 Room Air Intake and Output 10/04/16 10/05/16 19:00 07:00 Intake Total 360 ml 240 ml Output Total 1200 ml 775 ml Balance -840 ml -535 ml Intake Oral 360 ml 240 ml Output Urine Total 1200 ml 775 ml Laboratory Tests 10/05/16 04:30: Sodium Level 120L, Potassium Level 3.5, Chloride Level 80L, Carbon Dioxide Level 24, Anion Gap 16H, Blood Urea Nitrogen 20, Creatinine 0.9, Estimat Glomerular Filtration Rate , Glucose Level 109H, Uric Acid 3.5, Calcium Level 8.3L, Phosphorus Level 2.9, Magnesium Level 1.9, Total Bilirubin 0.5, Aspartate Amino Transf (AST/SGOT) 19, Alanine Aminotransferase (ALT/SGPT) 17, Alkaline Phosphatase 56, Total Protein 7.1, Albumin 3.8, Globulin 3.3, Albumin/Globulin Ratio 1.1 Height (Feet): 5 Height (Inches): 0.00 Weight (Pounds): 119 General Appearance: alert EENT: normal ENT inspection Neck: supple Cardiovascular: normal rate Respiratory/Chest: lungs clear Abdomen: soft, tender Extremities: non-tender JOAN VAZQUEZ October 05, 2016 08:09
[2016-10-05] MEDS ORDERED: NaCl 3% 500ml 500 ML IV ONE (09:00)
--- NOTE | 2016-10-05 11:58 | General Progress Note ---
Assessment/Plan Status: unchanged Status Narrative Na 120 lower ! 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 per orders Subjective ROS Limited/Unobtainable: No Constitutional: Reports: malaise, weakness Allergies: Coded Allergies: No Known Allergies (Unverified , 10/01/16) Objective Last 24 Hour Vital Signs Date Time Temp Pulse Resp B/P Pulse Ox O2 Delivery O2 Flow Rate FiO2 10/05/16 08:00 97.9 82 18 138/68 94 Room Air 10/05/16 04:00 97.5 80 20 147/61 Nasal Cannula 2.0 10/05/16 00:00 98.2 84 18 150/71 96 Nasal Cannula 10/04/16 20:00 98.4 91 18 126/68 96 Room Air 10/04/16 15:45 98.4 92 20 143/74 98 Room Air 10/04/16 12:12 98.0 86 20 152/62 99 Room Air Intake and Output 10/04/16 10/05/16 19:00 07:00 Intake Total 360 ml 240 ml Output Total 1200 ml 775 ml Balance -840 ml -535 ml Intake Oral 360 ml 240 ml Output Urine Total 1200 ml 775 ml Laboratory Tests 10/05/16 04:30: Sodium Level 120L, Potassium Level 3.5, Chloride Level 80L, Carbon Dioxide Level 24, Anion Gap 16H, Blood Urea Nitrogen 20, Creatinine 0.9, Estimat Glomerular Filtration Rate , Glucose Level 109H, Uric Acid 3.5, Calcium Level 8.3L, Phosphorus Level 2.9, Magnesium Level 1.9, Total Bilirubin 0.5, Aspartate Amino Transf (AST/SGOT) 19, Alanine Aminotransferase (ALT/SGPT) 17, Alkaline Phosphatase 56, Total Protein 7.1, Albumin 3.8, Globulin 3.3, Albumin/Globulin Ratio 1.1 Height (Feet): 5 Height (Inches): 0.00 Weight (Pounds): 119 General Appearance: no apparent distress Respiratory/Chest: lungs clear Abdomen: soft Edema: no edema noted Arm (L), no edema noted Arm (R), no edema noted Leg (L), no edema noted Leg (R), no edema noted Pedal (L), no edema noted Pedal (R), no edema noted Generalized Objective other PE not changed RAKESH UKMAR October 05, 2016 11:58
[2016-10-05 12:00] VITALS: BP 129/68
--- NOTE | 2016-10-05 12:52 | Infectious Diseases Prog Note ---
Assessment/Plan Assessment/Plan A: The patient is an 80-year-old female Leukocytosis, SP Gastroenteritis, SP US: Cholelithiasis , Question of the proximal CBD stone. The finding is doubtful that there is no biliary dilatation , also LFT is NL No evid of cholecystitis or other ID process Hypertension. History of right knee replacement. History of back pain. Depression. PLAN: will monitor the patient off of antibiotics. Monitor CBC. Monitor BMP. Subjective Constitutional: Denies: anorexia, chills, drenching sweats, fatigue, fever, no symptoms, other Allergies: Coded Allergies: No Known Allergies (Unverified , 10/01/16) Objective Vital Signs Last 24 Hour Vital Signs Date Time Temp Pulse Resp B/P Pulse Ox O2 Delivery O2 Flow Rate FiO2 10/05/16 12:00 98.2 80 18 129/68 97 Nasal Cannula 2.0 10/05/16 08:00 97.9 82 18 138/68 94 Room Air 10/05/16 04:00 97.5 80 20 147/61 Nasal Cannula 2.0 10/05/16 00:00 98.2 84 18 150/71 96 Nasal Cannula 10/04/16 20:00 98.4 91 18 126/68 96 Room Air 10/04/16 15:45 98.4 92 20 143/74 98 Room Air Height (Feet): 5 Height (Inches): 0.00 Weight (Pounds): 119 Respiratory/Chest: normal breath sounds Cardiovascular: regularly irregular Abdomen: normal bowel sounds Laboratory Tests Test 10/05/16 04:30 Sodium Level 120 mEQ/L (135-145) L Potassium Level 3.5 mEQ/L (3.4-4.9) Chloride Level 80 mEQ/L (98-107) L Carbon Dioxide Level 24 mEQ/L (20-30) Anion Gap 16 (5-15) H Blood Urea Nitrogen 20 mg/dL (7-23) Creatinine 0.9 mg/dL (0.5-0.9) Estimat Glomerular Filtration Rate mL/min (>60) Glucose Level 109 mg/dL (74-106) H Uric Acid 3.5 mg/dL (3.0-7.5) Calcium Level 8.3 mg/dL (8.6-10.2) L Phosphorus Level 2.9 mg/dL (2.5-4.8) Magnesium Level 1.9 mg/dL (1.7-2.5) Total Bilirubin 0.5 mg/dL (0.0-1.2) Aspartate Amino Transf (AST/SGOT) 19 U/L (5-40) Alanine Aminotransferase (ALT/SGPT) 17 U/L (3-33) Alkaline Phosphatase 56 U/L (35-104) Total Protein 7.1 g/dL (6.6-8.7) Albumin 3.8 g/dL (3.5-5.2) Globulin 3.3 g/dL Albumin/Globulin Ratio 1.1 (1.0-2.7) Current Medications Medications (Trade) Dose Ordered Sig/Jack Route PRN Reason Start Time Stop Time Status Last Admin Dose Admin Acetaminophen (Tylenol) 650 mg Q4H PRN ORAL T>100.5 10/02/16 15:00 11/01/16 14:59 Acetaminophen/ Hydrocodone Bitart ([place] 5/325) 1 tab Q4H PRN ORAL Moderate Pain (Pain Scale 4-6) 10/02/16 15:00 10/09/16 14:59 10/05/16 09:55 Al Hydroxide/Mg Hydroxide (Mylanta) 30 ml Q6H PRN ORAL GERD 10/05/16 08:15 11/04/16 08:14 10/05/16 08:42 Demeclocycline HCl (Declomycin) 300 mg TID ORAL 10/05/16 13:30 10/12/16 13:29 Dextrose (Dextrose 50%) STAT PRN IV Hypoglycemia 10/02/16 15:00 11/01/16 14:59 Duloxetine HCl (Cymbalta) 20 mg DAILY ORAL 10/03/16 09:00 11/02/16 08:59 10/05/16 08:42 Furosemide (Lasix) 10 mg EVERY 6 HOURS IV 10/04/16 12:00 11/03/16 11:59 10/05/16 06:00 Levothyroxine Sodium (Synthroid) 50 mcg DAILY@0630 ORAL 10/04/16 06:30 11/03/16 06:29 10/05/16 06:01 Lorazepam (Ativan 2mg/ml 1ml) 0.5 mg Q4H PRN IV For Anxiety 10/02/16 15:00 10/09/16 14:59 Morphine Sulfate (Morphine Sulfate) 1 mg Q4H PRN IVP Severe Pain (Pain Scale 7-10) 10/02/16 15:00 10/09/16 14:59 Ondansetron HCl (Zofran) 4 mg Q6H PRN IVP Nausea & Vomiting 10/02/16 15:00 11/01/16 14:59 10/05/16 06:00 Pantoprazole 40 mg 40 mg EVERY 12 HOURS ORAL 10/04/16 21:00 11/03/16 20:59 10/05/16 08:42 Polyethylene Glycol (Miralax) 17 gm HSPRN PRN ORAL Constipation 10/02/16 21:00 11/01/16 20:59 Potassium Chloride (K-Dur) 40 meq TWICE A DAY ORAL 10/05/16 09:00 11/04/16 08:59 10/05/16 08:42 Sodium Chloride (Hypertonic Saline) 500 ml @ 30 mls/hr ONCE ONCE IV 10/05/16 09:00 10/06/16 01:39 10/05/16 09:55 Zolpidem Tartrate (Ambien) 5 mg HSPRN PRN ORAL Insomnia 10/02/16 21:00 11/01/16 20:59 RORY TURNER M.D. October 05, 2016 12:52
[2016-10-05] MEDS: Demeclocycline 150mg tab ORAL SCH ×2 (14:19→17:04)
[2016-10-05 16:00] VITALS: BP 119/69
[2016-10-05 20:04] VITALS: BP 126/52
--- NOTE | 2016-10-05 21:15 | Consultation ---
DATE OF CONSULTATION: 10/03/2016 HISTORY OF PRESENT ILLNESS: The patient is an 80-year-old female, who has been admitted through the emergency room with a chief complaint of abdominal pain and vomiting for two weeks. The patient has a history of multiple medical problems including depression, cholecystitis, fatty liver, hypothyroidism, gastroesophageal reflux disease, hyponatremia, and hypertension. Psychiatry was consulted as the patient presented with depressive symptoms. During the evaluation, the patient is presenting with decreased energy, anxiety, worsening of pain, depression, and mainly due to pain. She has been taking Cymbalta as well as anxiolytics. PAST PSYCHIATRIC HISTORY: She has a history of depression. No psychiatric hospitalizations. No suicide attempt in the past. No history of violent behavior. PAST MEDICAL HISTORY: Hypertension, right knee replacement, and back pain. ALLERGIES: No known drug allergies. SUBSTANCE ABUSE HISTORY: No history of illicit drug use or alcohol. SOCIAL HISTORY: The patient lives at home. Has daughter, who is involved in her care. MENTAL STATUS EXAMINATION: The patient is alert and oriented x3. Cooperative and pleasant. Mood is depressed. Affect is constricted. Congruent mood. Thought process is concrete. Thought content, there is no suicidal or homicidal ideation. Cognition is intact. Insight and judgment is fair. PLAN: 1. The patient will be continued on lorazepam 0.5 mg every 4 hours p.r.n. and Ambien. 2. Cymbalta 30 mg in the morning. 3. We will continue to follow and monitor the patient's behavior. Frieda Coffman M.D. DR: JAMILA JOB#: [id number] CC:
--- NOTE | 2016-10-05 22:50 | Pulmonology Progress Note ---
Assessment/Plan Problems: (1) Hyponatremia (2) Abdominal pain (3) Vomiting (4) Hx of knee surgery (5) Depression (6) HTN (hypertension) Assessment/Plan Na better TSH slightly high on Synthyroid GI evaluation, endoscopy in am anemia w/u. dvt propylaxis Subjective ROS Limited/Unobtainable: No Allergies: Coded Allergies: No Known Allergies (Unverified , 10/01/16) Objective Last 24 Hour Vital Signs Date Time Temp Pulse Resp B/P Pulse Ox O2 Delivery O2 Flow Rate FiO2 10/05/16 20:04 97.2 80 18 126/52 Room Air 10/05/16 16:00 98.2 87 18 119/69 94 Room Air 10/05/16 12:00 98.2 80 18 129/68 97 Nasal Cannula 2.0 10/05/16 08:00 97.9 82 18 138/68 94 Room Air 10/05/16 04:00 97.5 80 20 147/61 Nasal Cannula 2.0 10/05/16 00:00 98.2 84 18 150/71 96 Nasal Cannula Intake and Output 10/04/16 10/05/16 19:00 07:00 Intake Total 360 ml 240 ml Output Total 1200 ml 775 ml Balance -840 ml -535 ml Intake Oral 360 ml 240 ml Output Urine Total 1200 ml 775 ml HEENT: normocephalic, atraumatic Respiratory/Chest: chest wall non-tender, lungs clear Cardiovascular: normal peripheral pulses, regular rhythm Abdomen: normal bowel sounds Extremities: no cyanosis Laboratory Tests 10/05/16 04:30: Sodium Level 120L, Potassium Level 3.5, Chloride Level 80L, Carbon Dioxide Level 24, Anion Gap 16H, Blood Urea Nitrogen 20, Creatinine 0.9, Estimat Glomerular Filtration Rate , Glucose Level 109H, Uric Acid 3.5, Calcium Level 8.3L, Phosphorus Level 2.9, Magnesium Level 1.9, Total Bilirubin 0.5, Aspartate Amino Transf (AST/SGOT) 19, Alanine Aminotransferase (ALT/SGPT) 17, Alkaline Phosphatase 56, Total Protein 7.1, Albumin 3.8, Globulin 3.3, Albumin/Globulin Ratio 1.1 Current Medications Medications (Trade) Dose Ordered Sig/Jack Route PRN Reason Start Time Stop Time Status Last Admin Dose Admin Acetaminophen (Tylenol) 650 mg Q4H PRN ORAL T>100.5 10/02/16 15:00 11/01/16 14:59 Acetaminophen/ Hydrocodone Bitart ([place] 5/325) 1 tab Q4H PRN ORAL Moderate Pain (Pain Scale 4-6) 10/02/16 15:00 10/09/16 14:59 10/05/16 20:18 Al Hydroxide/Mg Hydroxide (Mylanta) 30 ml Q6H PRN ORAL GERD 10/05/16 08:15 11/04/16 08:14 10/05/16 21:05 Demeclocycline HCl (Declomycin) 300 mg TID ORAL 10/05/16 13:30 10/12/16 13:29 10/05/16 17:04 Dextrose (Dextrose 50%) STAT PRN IV Hypoglycemia 10/02/16 15:00 11/01/16 14:59 Duloxetine HCl (Cymbalta) 30 mg DAILY ORAL 10/06/16 09:00 11/05/16 08:59 Furosemide (Lasix) 10 mg EVERY 6 HOURS IV 10/04/16 12:00 11/03/16 11:59 10/05/16 17:04 Levothyroxine Sodium (Synthroid) 50 mcg DAILY@0630 ORAL 10/04/16 06:30 11/03/16 06:29 10/05/16 06:01 Lorazepam (Ativan 2mg/ml 1ml) 0.5 mg Q4H PRN IV For Anxiety 10/02/16 15:00 10/09/16 14:59 Morphine Sulfate (Morphine Sulfate) 1 mg Q4H PRN IVP Severe Pain (Pain Scale 7-10) 10/02/16 15:00 10/09/16 14:59 Ondansetron HCl (Zofran) 4 mg Q6H PRN IVP Nausea & Vomiting 10/02/16 15:00 11/01/16 14:59 10/05/16 06:00 Pantoprazole 40 mg 40 mg EVERY 12 HOURS ORAL 10/04/16 21:00 11/03/16 20:59 10/05/16 20:17 Polyethylene Glycol (Miralax) 17 gm HSPRN PRN ORAL Constipation 10/02/16 21:00 11/01/16 20:59 Potassium Chloride (K-Dur) 40 meq TWICE A DAY ORAL 5/29/17 09:00 11/04/16 08:59 10/05/16 17:04 Sodium Chloride (Hypertonic Saline) 500 ml @ 30 mls/hr ONCE ONCE IV 10/05/16 09:00 10/06/16 01:39 10/05/16 09:55 Zolpidem Tartrate (Ambien) 5 mg HSPRN PRN ORAL Insomnia 10/02/16 21:00 11/01/16 20:59 ALINE HITCHCOCK October 05, 2016 22:50
[2016-10-06] VITALS (11 sets, daily range): BP systolic 116–151; BP diastolic 43–76
[2016-10-06] MEDS: Morphine Sulfate 2mg/ml Inj IVP PRN ×3 (00:18→10:24)
[2016-10-06 06:55] LABS: BASOPHILS % (AUTO) 0.5 % (0.0-2.0); EOSINOPHILS % (AUTO) 1.7 % (0.0-3.0); LYMPHOCYTES % (AUTO) 21.2 % (20.0-45.0); MEAN CORPUSCULAR HEMOGLOBIN 30.5 PG (27.0-31.0); MEAN CORPUSCULAR HGB CONC 34.2 G/DL (32.0-36.0); MEAN CORPUSCULAR VOLUME 89 FL (80-99); MEAN PLATELET VOLUME 5.8 FL (6.5-10.1); MONOCYTES % (AUTO) 6.1 % (1.0-10.0); NEUTROPHILS % (AUTO) 70.5 % (45.0-75.0); PLATELET COUNT 332 K/UL (150-450); RED BLOOD COUNT 3.39 M/UL (4.20-5.40); RED CELL DISTRIBUTION WIDTH 12.5 % (11.6-14.8); WHITE BLOOD COUNT 12.2 K/UL (4.8-10.8)
[2016-10-06 07:02] LABS: ALANINE AMINOTRANSFERASE 15 U/L (3-33); ALBUMIN/GLOBULIN RATIO 1.2 (1.0-2.7); ANION GAP 13 (5-15); ASPARTATE AMINO TRANSFERASE 17 U/L (5-40); CALCIUM 8.2 mg/dL (8.6-10.2); CARBON DIOXIDE 24 mEQ/L (20-30); CHLORIDE 91 mEQ/L (98-107); CREATININE 0.9 mg/dL (0.5-0.9); HEMOLYSIS 2; POTASSIUM 4.3 mEQ/L (3.4-4.9); SODIUM 128 mEQ/L (135-145); TOTAL PROTEIN 6.9 g/dL (6.6-8.7)
[2016-10-06 07:40] LABS: MAGNESIUM 2.1 mg/dL (1.7-2.5); PHOSPHORUS 2.2 mg/dL (2.5-4.8); URIC ACID 3.6 mg/dL (3.0-7.5)
[2016-10-06] MEDS ORDERED: DULoxetine 30mg cap ORAL SCH (09:00)
[2016-10-06] MEDS: Demeclocycline 150mg tab ORAL SCH ×2 (09:00→12:57)
[2016-10-06 10:20] LABS: OSMOLALITY SERUM LC 251 mOsmol/kg (280-301)
--- NOTE | 2016-10-06 11:11 | Infectious Diseases Prog Note ---
Assessment/Plan Assessment/Plan A: The patient is an 80-year-old female Leukocytosis, SP Gastroenteritis, SP US: Cholelithiasis , Question of the proximal CBD stone. The finding is doubtful that there is no biliary dilatation , also LFT is NL No evid of cholecystitis or other ID process Hypertension. History of right knee replacement. History of back pain. Depression. PLAN: will monitor the patient off of antibiotics. Monitor CBC. Monitor BMP. Subjective Constitutional: Denies: anorexia, chills, drenching sweats, fatigue, fever, no symptoms, other Allergies: Coded Allergies: No Known Allergies (Unverified , 10/01/16) Objective Vital Signs Last 24 Hour Vital Signs Date Time Temp Pulse Resp B/P Pulse Ox O2 Delivery O2 Flow Rate FiO2 10/06/16 10:54 97.0 10/06/16 07:31 97.0 90 14 127/59 95 Room Air 10/06/16 04:10 98.1 89 17 144/62 97 Room Air 10/06/16 00:10 98.2 87 18 151/76 95 Room Air 10/05/16 20:04 97.2 80 18 126/52 Room Air 10/05/16 16:00 98.2 87 18 119/69 94 Room Air 10/05/16 12:00 98.2 80 18 129/68 97 Nasal Cannula 2.0 Height (Feet): 5 Height (Inches): 0.00 Weight (Pounds): 115 HEENT: anicteric Respiratory/Chest: no respiratory distress Cardiovascular: regularly irregular Abdomen: non distended Laboratory Tests Test 10/06/16 05:25 White Blood Count 12.2 K/UL (4.8-10.8) H Red Blood Count 3.39 M/UL (4.20-5.40) L Hemoglobin 10.3 G/DL (12.0-16.0) L Hematocrit 30.3 % (37.0-47.0) L Mean Corpuscular Volume 89 FL (80-99) Mean Corpuscular Hemoglobin 30.5 PG (27.0-31.0) Mean Corpuscular Hemoglobin Concent 34.2 G/DL (32.0-36.0) Red Cell Distribution Width 12.5 % (11.6-14.8) Platelet Count 332 K/UL (150-450) Mean Platelet Volume 5.8 FL (6.5-10.1) L Neutrophils (%) (Auto) 70.5 % (45.0-75.0) Lymphocytes (%) (Auto) 21.2 % (20.0-45.0) Monocytes (%) (Auto) 6.1 % (1.0-10.0) Eosinophils (%) (Auto) 1.7 % (0.0-3.0) Basophils (%) (Auto) 0.5 % (0.0-2.0) Sodium Level 128 mEQ/L (135-145) L Potassium Level 4.3 mEQ/L (3.4-4.9) Chloride Level 91 mEQ/L (98-107) L Carbon Dioxide Level 24 mEQ/L (20-30) Anion Gap 13 (5-15) Blood Urea Nitrogen 23 mg/dL (7-23) Creatinine 0.9 mg/dL (0.5-0.9) Estimat Glomerular Filtration Rate mL/min (>60) Glucose Level 108 mg/dL (74-106) H Uric Acid 3.6 mg/dL (3.0-7.5) Calcium Level 8.2 mg/dL (8.6-10.2) L Phosphorus Level 2.2 mg/dL (2.5-4.8) L Magnesium Level 2.1 mg/dL (1.7-2.5) Total Bilirubin 0.4 mg/dL (0.0-1.2) Aspartate Amino Transf (AST/SGOT) 17 U/L (5-40) Alanine Aminotransferase (ALT/SGPT) 15 U/L (3-33) Alkaline Phosphatase 57 U/L (35-104) Total Protein 6.9 g/dL (6.6-8.7) Albumin 3.8 g/dL (3.5-5.2) Globulin 3.1 g/dL Albumin/Globulin Ratio 1.2 (1.0-2.7) Carcinoembryonic Antigen 1.9 ng/mL Current Medications Medications (Trade) Dose Ordered Sig/Jack Route PRN Reason Start Time Stop Time Status Last Admin Dose Admin Acetaminophen (Tylenol) 650 mg Q4H PRN ORAL T>100.5 10/02/16 15:00 11/01/16 14:59 Acetaminophen/ Hydrocodone Bitart ([place] 5/325) 1 tab Q4H PRN ORAL Moderate Pain (Pain Scale 4-6) 10/02/16 15:00 10/09/16 14:59 10/05/16 20:18 Al Hydroxide/Mg Hydroxide (Mylanta) 30 ml Q6H PRN ORAL GERD 10/05/16 08:15 11/04/16 08:14 10/05/16 21:05 Demeclocycline HCl (Declomycin) 300 mg TID ORAL 10/05/16 13:30 10/12/16 13:29 10/05/16 17:04 Dextrose (Dextrose 50%) STAT PRN IV Hypoglycemia 10/02/16 15:00 11/01/16 14:59 Duloxetine HCl 30 mg 30 mg DAILY ORAL 10/06/16 09:00 11/05/16 08:59 Furosemide (Lasix) 10 mg EVERY 6 HOURS IV 10/04/16 12:00 11/03/16 11:59 10/06/16 05:39 Levothyroxine Sodium (Synthroid) 50 mcg DAILY@0630 ORAL 10/04/16 06:30 11/03/16 06:29 10/05/16 06:01 Lorazepam (Ativan 2mg/ml 1ml) 0.5 mg Q4H PRN IV For Anxiety 10/02/16 15:00 10/09/16 14:59 Morphine Sulfate (Morphine Sulfate) 1 mg Q4H PRN IVP Severe Pain (Pain Scale 7-10) 10/02/16 15:00 10/09/16 14:59 10/06/16 10:24 Ondansetron HCl (Zofran) 4 mg Q6H PRN IVP Nausea & Vomiting 10/02/16 15:00 11/01/16 14:59 10/05/16 06:00 Pantoprazole (Protonix) 40 mg EVERY 12 HOURS ORAL 10/04/16 21:00 11/03/16 20:59 10/05/16 20:17 Polyethylene Glycol (Miralax) 17 gm HSPRN PRN ORAL Constipation 10/02/16 21:00 11/01/16 20:59 Potassium Chloride (K-Dur) 40 meq TWICE A DAY ORAL 10/05/16 09:00 11/04/16 08:59 10/05/16 17:04 Sodium Chloride (Hypertonic Saline) 250 ml @ 30 mls/hr ONCE ONCE IV 10/06/16 18:00 10/07/16 02:19 Sodium Phosphate 30 mm/Sodium Chloride 285 ml @ 47.5 mls/hr ONCE ONCE IVPB 10/06/16 12:00 10/06/16 17:59 10/06/16 10:59 Zolpidem Tartrate (Ambien) 5 mg HSPRN PRN ORAL Insomnia 10/02/16 21:00 11/01/16 20:59 RORY TURNER M.D. October 06, 2016 11:11
[2016-10-06] MEDS ORDERED: Sodium Phosphate 30 MM in NS 275 ML IVPB ONE (12:00)
[2016-10-06] MEDS ORDERED: NaCl 3% 500ml 250 ML IV ONE ×2 (12:00→18:00)
--- NOTE | 2016-10-06 12:37 | Pre-Procedure Note/Attestation ---
Pre-Procedure Note/Attestation Complete Prior to Procedure Planned Procedure: not applicable Procedure Narrative: egd Indications for Procedure Pre-Operative Diagnosis: abd pain Attestation I attest that I discussed the nature of the procedure; its benefits; risks and complications; and alternatives (and the risks and benefits of such alternatives ), prior to the procedure, with the patient (or the patient's legal roofing sales representative). I attest that, if there was a reasonable possibility of needing a blood transfusion, the patient (or the patient's legal roofing sales representative) was given the [facility] standardized written summary, pursuant to the Eddie Roger Blood Safety Act ([place] Health and Safety Code # 1645, as amended). I attest that I re-evaluated the patient just prior to the surgery and that there has been no change in the patient's H&P, except as documented below: JOAN VAZQUEZ October 06, 2016 12:37
[2016-10-06] MEDS ORDERED: NS 550ML IV ONE (12:42)
--- NOTE | 2016-10-06 12:46 | Endoscopy Procedure Note ---
Endoscopy Procedure Note Indication for Procedure: abd pain Procedures Performed: EGD Operative Findings/Diagnosis: gastritis Specimen: yes Pt Tolerated Procedure Well: Yes Estimated Blood Loss: none Anesthesiologist: joe Anesthesia: MAC Implant(s) used?: No 50 yrs or older w/o bx or poly: Not Applicable 10yrs. F/U not recommended: Not Applicable JOAN AVZQUEZ October 06, 2016 12:46
[2016-10-06] MEDS ORDERED: Propofol 10mg/ml 20ml IV ONE (13:00)
[2016-10-06] MEDS ORDERED: fentaNYL 100 mcg/2 mL IV PRN (13:00)
[2016-10-06] MEDS ORDERED: Midazolam 2mg/2ml Inj ONE (13:00)
[2016-10-06] MEDS ORDERED: fentaNYL 100 mcg/2 mL IV ONE (13:00)
--- NOTE | 2016-10-06 13:24 | Anethesia Preoperative Eval ---
Anesthesia Pre-op PMH/ROS General Date of Evaluation: October 06, 2016 Time of Evaluation: 12:40 Anesthesiologist: Long ASA Score: ASA 3 Mallampati Score Class I : Soft palate, uvula, fauces, pillars visible Class II: Soft palate, uvula, fauces visible Class III: Soft palate, base of uvula visible Class IV: Only hard plate visible Mallampati Classification: Class II Surgeon: Marcial Diagnosis: Abdominal pain Surgical Procedure: EGD Anesthesia History: none Family History: no anesthesia problems Allergies: Coded Allergies: No Known Allergies (Unverified , 10/01/16) Medications: see eMAR Past Medical History Cardiovascular: Reports: HTN, Denies: CAD, MS, arrhythmia, other, valve dz Pulmonary: Denies: COPD, ALFREDO, asthma, other Gastrointestinal/Genitourinary: Reports: GERD, Denies: CRI, ESRD, other Neurologic/Psychiatric: Denies: CVA, TIA, dementia, depression/anxiety, other Endocrine: Denies: DM, hypothyroidism, other, steroids HEENT: Reports: cataract (L), cataract (R), Denies: NULATO (L), NULATO (R), glaucoma, other Hematology/Immune: Denies: DVT, anemia, bleeding disorder, other Musculoskeletal/Integumentary: Reports: DJD, Denies: DDD, OA, RA, edema, other PMH Narrative: as above PSxH Narrative: see chart Anesthesia Pre-op Phys. Exam Physician Exam Last Vital Signs Date Time Temp Pulse Resp B/P Pulse Ox O2 Delivery O2 Flow Rate FiO2 10/06/16 13:15 77 15 124/43 98 Room Air 10/06/16 13:05 3.0 10/06/16 13:00 97.0 Constitutional: NAD Neurologic: CN 2-12 intact Cardiovascular: RRR, no M/R/G Respiratory: CTA Gastrointestinal: S/NT/ND Airway Exam Mallampati Score: Class II MO: full Neck: stiff ROM: limited Teeth: missing Dentures: no lower, no upper Anesthesia Pre-op A/P Labs Hematology Test 10/06/16 05:25 White Blood Count 12.2 K/UL (4.8-10.8) H Red Blood Count 3.39 M/UL (4.20-5.40) L Hemoglobin 10.3 G/DL (12.0-16.0) L Hematocrit 30.3 % (37.0-47.0) L Mean Corpuscular Volume 89 FL (80-99) Mean Corpuscular Hemoglobin 30.5 PG (27.0-31.0) Mean Corpuscular Hemoglobin Concent 34.2 G/DL (32.0-36.0) Red Cell Distribution Width 12.5 % (11.6-14.8) Platelet Count 332 K/UL (150-450) Mean Platelet Volume 5.8 FL (6.5-10.1) L Neutrophils (%) (Auto) 70.5 % (45.0-75.0) Lymphocytes (%) (Auto) 21.2 % (20.0-45.0) Monocytes (%) (Auto) 6.1 % (1.0-10.0) Eosinophils (%) (Auto) 1.7 % (0.0-3.0) Basophils (%) (Auto) 0.5 % (0.0-2.0) Chemistry Test 10/06/16 05:25 Sodium Level 128 mEQ/L (135-145) L Potassium Level 4.3 mEQ/L (3.4-4.9) Chloride Level 91 mEQ/L (98-107) L Carbon Dioxide Level 24 mEQ/L (20-30) Anion Gap 13 (5-15) Blood Urea Nitrogen 23 mg/dL (7-23) Creatinine 0.9 mg/dL (0.5-0.9) Estimat Glomerular Filtration Rate mL/min (>60) Glucose Level 108 mg/dL (74-106) H Uric Acid 3.6 mg/dL (3.0-7.5) Calcium Level 8.2 mg/dL (8.6-10.2) L Phosphorus Level 2.2 mg/dL (2.5-4.8) L Magnesium Level 2.1 mg/dL (1.7-2.5) Total Bilirubin 0.4 mg/dL (0.0-1.2) Aspartate Amino Transf (AST/SGOT) 17 U/L (5-40) Alanine Aminotransferase (ALT/SGPT) 15 U/L (3-33) Alkaline Phosphatase 57 U/L (35-104) Total Protein 6.9 g/dL (6.6-8.7) Albumin 3.8 g/dL (3.5-5.2) Globulin 3.1 g/dL Albumin/Globulin Ratio 1.2 (1.0-2.7) Carcinoembryonic Antigen 1.9 ng/mL Studies Pre-op Studies: EKG - NSR Risk Assessment & Plan Assessment: ASA 3 Plan: MAC Status Change Before Surgery: No Pre-Antibiotics Drug: none FADUMO LYLE M.D. October 06, 2016 13:24
--- NOTE | 2016-10-06 13:25 | Immediate Post-Op Evaluation ---
Immediate Post-Op Evalulation Immediate Post-Op Evalulation Procedure: EGD with Bx. Date of Evaluation: October 06, 2016 Time of Evaluation: 13:08 IV Fluids: 2 FADUMO LYLE M.D. October 06, 2016 13:25
--- NOTE | 2016-10-06 14:26 | 48 Hour Post Anesthesia Eval ---
Post Anesthesia Evaluation Procedure: EGD with Bx. Date of Evaluation: October 06, 2016 Time of Evaluation: 14:25 Blood Pressure Systolic: 132 0: 72 Pulse Rate: 68 Respiratory Rate: 20 Temperature (Fahrenheit): 97.6 O2 Sat by Pulse Oximetry: 99 Airway: patent Nausea: No Vomiting: No Pain Intensity: 1 Hydration Status: adequate Cardiopulmonary Status: stable Mental Status/LOC: patient returned to baseline Follow-up Care/Observations: n/a Post-Anesthesia Complications: none Follow-up care needed: N/A FADUMO LYLE M.D. October 06, 2016 14:26
--- NOTE | 2016-10-06 14:33 | General Progress Note ---
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 per orders Subjective ROS Limited/Unobtainable: No Constitutional: Reports: other - stronger Allergies: Coded Allergies: No Known Allergies (Unverified , 10/01/16) Objective Last 24 Hour Vital Signs Date Time Temp Pulse Resp B/P Pulse Ox O2 Delivery O2 Flow Rate FiO2 10/06/16 14:26 68 20 99 10/06/16 13:30 97.3 78 19 123/43 98 Room Air 10/06/16 13:20 77 18 121/45 98 Room Air 10/06/16 13:15 77 15 124/43 98 Room Air 10/06/16 13:10 76 17 116/47 97 Room Air 10/06/16 13:05 78 15 119/44 100 Nasal Cannula 3.0 10/06/16 13:00 97.0 77 16 119/46 100 Nasal Cannula 3.0 10/06/16 11:35 97.3 14 133/51 97 Room Air 10/06/16 10:54 97.0 10/06/16 07:31 97.0 90 14 127/59 95 Room Air 10/06/16 04:10 98.1 89 17 144/62 97 Room Air 10/06/16 00:10 98.2 87 18 151/76 95 Room Air 10/05/16 20:04 97.2 80 18 126/52 Room Air 10/05/16 16:00 98.2 87 18 119/69 94 Room Air Intake and Output 10/05/16 10/06/16 19:00 07:00 Intake Total 990 ml 230 ml Output Total 1000 ml 675 ml Balance -10 ml -445 ml Intake Oral 720 ml IV Total 270 ml 230 ml Output Urine Total 1000 ml 675 ml # Bowel Movements 2 Laboratory Tests 10/06/16 05:25: White Blood Count 12.2H, Red Blood Count 3.39L, Hemoglobin 10.3L, Hematocrit 30.3L, Mean Corpuscular Volume 89, Mean Corpuscular Hemoglobin 30.5, Mean Corpuscular Hemoglobin Concent 34.2, Red Cell Distribution Width 12.5, Platelet Count 332, Mean Platelet Volume 5.8L, Neutrophils (%) (Auto) 70.5, Lymphocytes ( %) (Auto) 21.2, Monocytes (%) (Auto) 6.1, Eosinophils (%) (Auto) 1.7, Basophils (%) (Auto) 0.5, Sodium Level 128L, Potassium Level 4.3, Chloride Level 91L, Carbon Dioxide Level 24, Anion Gap 13, Blood Urea Nitrogen 23, Creatinine 0.9, Estimat Glomerular Filtration Rate , Glucose Level 108H, Uric Acid 3.6, Calcium Level 8.2L, Phosphorus Level 2.2L, Magnesium Level 2.1, Total Bilirubin 0.4, Aspartate Amino Transf (AST/SGOT) 17, Alanine Aminotransferase (ALT/SGPT) 15, Alkaline Phosphatase 57, Total Protein 6.9, Albumin 3.8, Globulin 3.1, Albumin/ Globulin Ratio 1.2, Carcinoembryonic Antigen 1.9 Height (Feet): 5 Height (Inches): 0.00 Weight (Pounds): 115 General Appearance: no apparent distress Objective other PE not changed RAKESH KUMAR October 06, 2016 14:33
[2016-10-06] MEDS: Norco 5mg/325mg tab ORAL PRN (16:58)
[2016-10-06] MEDS ORDERED: SYNTHROID50 MCG ORAL (18:48)
[2016-10-06] MEDS ORDERED: DECLOMYCIN150 MG ORAL (19:00)
--- NOTE | 2016-10-06 22:00 | Procedure Note ---
DATE OF PROCEDURE: 10/06/2016 SURGEON: Juan F Ceja M.D. PROCEDURE: Upper endoscopy with biopsy. ANESTHESIOLOGIST: Augustine Alves M.D. INSTRUMENT: Olympus adult flexible upper endoscope. INDICATION: Abdominal pain. REASON FOR PROCEDURE: The procedure, risks, benefits, and possible consequences, including hemorrhage, aspiration, perforation and infection, and alternative treatments, were explained to the patient/legal guardian by Dr. Juan F Ceja and the patient/legal guardian understood and accepted these risks. DESCRIPTION OF PROCEDURE: After informed consent was obtained and the patient was adequately sedated, Olympus upper endoscope was advanced from mouth into the second portion of duodenum and retroflexion was performed in the stomach. The patient had evidence of diffuse gastritis. Random biopsy from antrum was obtained to rule out H. pylori infection. Otherwise, the rest of the upper endoscopic examination was grossly within normal limits. The patient tolerated the procedure very well without any complications. SUMMARY OF FINDINGS: Gastritis, otherwise, normal upper endoscopy examination. RECOMMENDATIONS: Follow up biopsies and treat accordingly. I want to thank, Dr. Bourgeois, for this kind referral. Juan F Ceja M.D. DR: LATOYA JOB#: [id number] CC: Akil Bourgeois M.D.; Fax#: [phone]
--- NOTE | 2016-10-07 07:52 | Diagnostic Imaging Report ---
Indication: 6-year-old female inpatient with mild gallbladder distention, abdominal pain, nausea and vomiting Technique: Coronal and axial single shot fast spin-echo breath-hold, axial T2 FRFSE, 2-D thick slab MRCP, AXIAL 2-D FIESTA fat saturated, axial 3-D dual echo breath-hold, water weighted axial LAVA FLEX, revealed 3-D MRCP images were obtained of the abdomen. MIP reconstructions were generated of the bile ducts Comparison: Abdomen ultrasound dated 10/03/2016, abdomen pelvis CT scanner at 10/01/2016 Findings: The gallbladder demonstrates few small filling defects, corresponding to gallstones described on recent ultrasound. Gallbladder wall abnormalities described on recent CT are not evident on MRI. The common bile duct is mildly dilated, measuring approximately 8 mm diameter, slightly more prominent than on prior CT scan. There is equivocally and abrupt cut off with meniscus just above the level of the ampulla which could reflect a small common bile duct calculus. No other common duct filling defects are demonstrated. The pancreatic duct is mildly ectatic. No focal pancreatic parenchymal abnormality demonstrated. The liver demonstrates no focal abnormalities. This demonstrates some signal dropout on the fat-saturated images, compatible with the fatty change described on recent CT scan. Unremarkable. There is suggestion of a 10 mm mass in the left adrenal. The right adrenal is diffusely bulky without definite discrete mass. Both adrenals demonstrate signal dropout on the out of phase images, indicating benign adenoma on the left and probable benign hypertrophic changes on the right. Bilateral renal cysts are demonstrated, also described on CT. Impression: Mildly dilated extra hepatic bile ducts, suggestively somewhat more dilated than on earlier CT scan. Meniscoid appearance of the termination raises possibility of an impacted downstream common bile duct stone. Correlate with liver function tests, consider further evaluation with ERCP if clinically indicated. Nuclear medicine hepatobiliary scan may also be useful to assess for common bile duct patency Cholelithiasis, also previously described Note that gallbladder wall abnormalities described on CT scan are not well assessed on MRI, predominantly due to more limited spatial resolution of MRI technique. Nonspecific mild ectasia of the pancreatic duct 10 mm left adrenal adenoma. Generalized hypertrophy of the right adrenal Incidental finding of bilateral renal cysts, also previously described
--- NOTE | 2016-10-07 11:02 | Cardiology Report ---
APPROVED REPORT EXAM: Two-dimensional and M-mode echocardiogram with Doppler and color Doppler. INDICATION Left ventricular Function. M-Mode DIMENSIONS IVSd1.2 (0.7-1.1cm)Left Atrium (MM)4.0 (1.6-4.0cm) LVDd4.8 (3.5-5.6cm)Aortic Root2.8 (2.0-3.7cm) PWd1.2 (0.7-1.1cm)Aortic Cusp Exc.1.6 (1.5-2.0cm) LVDs3.1 (2.5-4.0cm) PWs1.9 cm Technically difficult study due to poor acoustic windows. Normal left ventricular chamber size, systolic function and wall motion to extent visualized. Left ventricular ejection fraction estimated to be 50-55%. No evidence of pericardial effusion. Anterior Echo-free space may be due to pericardial fat or effusion. Significant left ventricular hypertrophy All other cardiac chamber sizes are within normal limits. . Thickened mitral valve leaflets with normal excursion. Aortic valve cusps calcification with normal excursion. Pulmonic valve structure not well visualized. Normal tricuspid valve structure. IVC at normal size with physiologic collapse. RA pressure 10mmHg. A color flow and spectral Doppler study was performed and revealed: No aortic regurgitation. Mild mitral regurgitation. Mitral diastolic velocities suggest grade 1 diastolic dysfunction. Mild, tricuspid regurgitation. Tricuspid systolic velocities suggests peak right ventricular systolic pressure of 30mmHg consistent with mild pulmonary hypertension. No pulmonic regurgitation present.
--- NOTE | 2016-10-07 18:15 | Progress Note ---
DATE: 10/06/2016 SUBJECTIVE: The patient is stable at baseline. The patient is calm, however still suffering from depression and decreased energy. His appetite is adequate. . MENTAL STATUS EXAMINATION: The patient is alert and oriented x3. Mood is mood is dysphoric. Affect is constricted congruent with mood. Thought process is concrete. Thought content, there is no suicidal or homicidal ideations. ASSESSMENT: Depression. PLAN: The patient will be continued on current medication. Provide the patient with supportive therapy and reality orientation. Frieda Coffman M.D. DR: DENNYS JOB#: [id number] CC:
--- NOTE | 2016-10-08 09:34 | Discharge Summary ---
Discharge Summary Hospital Course Date of Admission October 01, 2016 at 08:45 Date of Discharge October 06, 2016 at 19:11 Admitting Diagnosis vomiting/weakness HPI Destiny Sales is a 80 year old female who was admitted on October 01, 2016 at 08:45 for Vomiting/Weakness Hospital Course [id number] Discharge Discharge Disposition Patient was discharged to Home (01) Discharge Diagnoses: Joann Kevin NP Oct 08, 2016 09:34
--- NOTE | 2016-10-08 22:45 | Discharge Summary 2 SIG ---
DATE OF ADMISSION: 10/01/2016 DATE OF DISCHARGE: 10/06/2016 CONSULTANTS: 1. Juan F Ceja M.D. 2. Amanuel Gordillo M.D. 3. Cheo Kaufman M.D. 4. Frieda Coffman M.D. BRIEF HOSPITAL COURSE: The patient is an 80-year-old female who had a history of hypertension and a recent knee surgery, presented to ED complaining of abdominal pain and vomiting for two weeks. The patient had left knee surgery at [facility] early this month and was discharged home on pain medications. The patient was unable to tolerate anything by mouth and was having abdominal pain with nausea and vomiting. On evaluation at ED, there was no leukocytosis. Hemoglobin and hematocrit were stable, however, sodium was markedly low at 101. CT of the abdomen and pelvis showed no obvious acute abdominopelvic disease with mild gallbladder distention. Due to hyponatremia, vomiting and abdominal pain, the patient was admitted to [facility] for further evaluation and was started on hypertonic saline solution. She was given Protonix IV and was observed off antibiotic treatment. She was noted to have elevated TSH level and was given Synthroid. Urine sodium and osmolality were elevated and had low uric acid. The patient has been taking Cymbalta at home. She was seen by Dr. Coffman. She was continued on lorazepam q.4 h. p.r.n. and continued on Cymbalta. She was given symptomatic treatment of her nausea and had been tolerating diet. She underwent EGD by Dr. Ceja on 10/06/2016 with findings of gastritis. She was given demeclocycline. Sodium levels improved. She underwent abdominal ultrasound with findings of cholelithiasis and questionable proximal CBD stone. MRCP done showed mildly dilated extrahepatic bile ducts suggestively of somewhat more dilated on CT scan. Echocardiogram done showed left ventricular ejection fraction 50% to 55%. Sodium was better. The patient was eventually discharged home. Advised to follow up as outpatient and was advised to continue levothyroxine 50 mcg and demeclocycline 300 mg t.i.d. FINAL DIAGNOSES: 1. Hyponatremia. 2. 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 3. Depression. 4. Hypothyroidism. 5. Hypertension. 6. Gastritis. 7. Acute gastroenteritis. 8. Cholelithiasis. 9. Recent right knee replacement. Akil Bourgeois M.D. I have been assigned to dictate discharge summary on this account and I was not involved in the patient's management. Joann Kevin N.P. DR: JASON JOB#: [id number] CC:
== END 2016-10-06 19:11 | disposition home or self-care (01) | DRG 424 ==
LOC: EDBD 08:12 → EMR 08:41 → 2W 08:45 → EDBEDREQSVC 11:02 → EDBEDREQ 11:02 → 2W 12:48 → 4W 10-02 14:31
PROC: 0DB68ZX Excision of Stomach, Via Natural or Artificial Opening Endoscopic, Diagnostic (ICD-10-PCS; principal; 2016-10-06 12:48)
DX: E22.2 Syndrome of inappropriate secretion of antidiuretic hormone (principal); K76.0 Fatty (change of) liver, not elsewhere classified; D64.9 Anemia, unspecified; I10 Essential (primary) hypertension; F32.9 Major depressive disorder, single episode, unspecified; R11.2 Nausea with vomiting, unspecified; R10.9 Unspecified abdominal pain; Z96.651 Presence of right artificial knee joint; K21.9 Gastro-esophageal reflux disease without esophagitis; E03.9 Hypothyroidism, unspecified; K29.70 Gastritis, unspecified, without bleeding; K80.20 Calculus of gallbladder without cholecystitis without obstruction; K57.90 Diverticulosis of intestine, part unspecified, without perforation or abscess without bleeding
CPT/HCPCS: 36415; 71010; 74177; 74181; 76700; 80053; 80061; 81003; 82270; 82378; 82607; 82728; 82746; 83540; 83550; 83690; 83735; 83880; 83930; 83935; 84100; 84300; 84439; 84443; 84481; 84484; 84550; 85025; 85044; 85610; 85730; 87081; 93005; 93306; 93970; 94003; 94150; J2250; J2405; J8499